=== PATIENT | male | born 1945 | race Hispanic/Latino ===

== ENCOUNTER 2021-06-22 17:30 | Inpatient (IN) | payer MEDICARE ==
[2021-06-22] MEDS ORDERED: SODIUM CHLORIDE 0.9% 500 ML 500 ML IV ONE (17:37)
[2021-06-22] MEDS ORDERED: METOPROLOL TARTRATE 5 MG/5 ML INJ IV ONE (17:39)
[2021-06-22] MEDS ORDERED: PHENYTOIN 1,000 MG in SODIUM CHLORIDE 0.9% 250ML 250 ML IV ONE (17:51)
--- NOTE | 2021-06-22 17:58 | XRay Report ---
CHEST 1 VIEW 06/22/2021 5:39 PM INDICATION / CLINICAL INFORMATION: Dyspnea. COMPARISON: None available. FINDINGS: SUPPORT DEVICES: None. HEART / MEDIASTINUM: No significant abnormality. LUNGS / PLEURA: No significant pulmonary or pleural abnormality. No pneumothorax. ADDITIONAL FINDINGS: No significant additional findings. IMPRESSION: 1. No acute findings. Signer Name: John Sampson MD Signed: 06/22/2021 5:53 PM Workstation Name: [id number]
[2021-06-22 18:14] LABS: Basophils # (Auto) 0.1 K/mm3 (0.0-0.1); Basophils % (Auto) 0.7 % (0.0-1.8); Eosinophils # (Auto) 0.2 K/mm3 (0.0-0.4); Eosinophils % (Auto) 2.4 % (0.0-4.3); Lymphocytes # (Auto) 3.4 K/mm3 (1.2-5.4); Lymphocytes % (Auto) 44.5 % (13.4-35.0); Mean Corpuscular HGB Conc 31 % (32-34); Mean Corpuscular Volume 102 fl (84-94); Monocytes # (Auto) 0.9 K/mm3 (0.0-0.8); Monocytes % (Auto) 11.3 % (0.0-7.3); Platelet Count 181 K/mm3 (140-440); Red Blood Count 4.06 M/mm3 (3.65-5.03); Red Cell Distribution Width 14.9 % (13.2-15.2)
[2021-06-22 18:18] LABS: Hematocrit 41.3 % (35.5-45.6); Hemoglobin 12.7 gm/dl (11.8-15.2)
--- NOTE | 2021-06-22 18:23 | Cat Scan Report ---
CT head/brain wo con INDICATION / CLINICAL INFORMATION: 75 years Male; Seizure. TECHNIQUE: Routine CT head without contrast. All CT scans at this location are performed using CT dos e reduction for ALARA by means of automated exposure control. COMPARISON: None. FINDINGS: BRAIN / INTRACRANIAL CONTENTS: No acute hemorrhage, mass effect, midline shift, hydrocephalus, or acu te, large territorial infarct. Mild to moderate, diffuse cerebral and cerebellar atrophy. Moderate degree of hippocampal atrophy sug gested bilaterally. There are [id number] areas of decreased attenuation in the white matter of the cerebral hemisph eres. These are nonspecific findings and may be related to microangiopathy (hypertension, diabetes, a therosclerosis), given the patient's age. It might be difficult to evaluate for small areas of ischem ia without diffusion imaging by MRI. CRANIOCERVICAL JUNCTION: No significant abnormality. ORBITS: No significant abnormality of visualized orbits. SINUSES / MASTOIDS: Visualized paranasal sinuses and mastoid air cells are essentially clear. ADDITIONAL FINDINGS: Atherosclerotic disease is seen in the anterior and posterior circulation. IMPRESSION: 1. No focal mass, hemorrhage, hydrocephalus, or acute, large territorial infarct. Signer Name: Reji Cartagena MD, III Signed: 06/22/2021 6:19 PM Workstation Name: [id number]ITALTrialPayRUTG[facility]1
[2021-06-22 18:24] LABS: INR 1.26 (0.87-1.13)
[2021-06-22 18:35] LABS: Albumin 4.6 g/dL (3.9-5); Calcium 9.6 mg/dL (8.4-10.2)
[2021-06-22] MEDS ORDERED: dilTIAZem/D5W 100 MG/100 ML BAG IV SCH (19:00)
--- NOTE | 2021-06-22 19:31 | Emergency Department Report ---
ED Seizure HPI - General Chief Complaint: Seizure Stated Complaint: SEIZURE SYNCOPAL EPISODE Time Seen by Provider: 06/22/21 17:37 Source: patient, EMS Mode of arrival: Stretcher Limitations: No Limitations - History of Present Illness Initial Comments: pt was brought in by EMS for syncope fall and possible zeisure pt is 89 years old with recent 3 stents in [facility], doesn;t remember what hapenned today but he fell and his head and had cut on his tongue , no chest pain no sob no history of seizure in the past MD Complaint: seizure -: hour(s) Description of Episode: loss of consciousness, tonic-clonic movement -: second(s) Witnessed:: Yes Trauma: Yes Seizure History: none Place: home Possible Precipitating Event: head injury Associated Symptoms: confusion. denies: denies other symptoms, chest pain, loss of appetite, weakness, tongue injury - Related Data Home Medications Medication Instructions Recorded Confirmed Last Taken Ciprofloxacin TAB 06/22/21 06/22/21 09:00 Eliquis 5 mg PO BID 06/22/21 06/22/21 06/22/21 09:00 Losartan 20 mg PO 06/22/21 06/22/21 12:00 Metoprolol 100 PO BID 06/22/21 06/22/21 09:15 Allergies Allergy/AdvReac Type Severity Reaction Status Date / Time No Known Allergies Allergy Unverified 06/22/21 17:34 ED Review of Systems ROS: Stated complaint: SEIZURE SYNCOPAL EPISODE Other details as noted in HPI Comment: Unobtainable due to pts medical conditions ED Past Medical Hx - Past Medical History Previous Medical History?: Yes Hx Hypertension: Yes Hx CVA: No Hx Heart Attack/AMI: No Hx Diabetes: No Hx Deep Vein Thrombosis: No Hx Pulmonary Embolism: No Hx Liver Disease: No Hx Renal Disease: No Hx of Cancer: No Hx Sickle Cell Disease: No Hx Arthritis: No Hx Seizures: No Hx Kidney Stones: No Hx Psychiatric Treatment: No Hx Asthma: No Hx COPD: No Hx Tuberculosis: No Hx Dementia: No Hx HIV: No - Surgical History Past Surgical History?: Yes Hx Coronary Stent: Yes ([facility] 3 weeks ago) Hx Open Heart Surgery: No Hx Pacemaker: No Hx Internal Defibrillator: No Hx Cholecystectomy: No Hx Appendectomy: No Hx Breast Surgery: No - Social History Smoking Status: Former Smoker Substance Use Type: None - Medications Home Medications: Home Medications Medication Instructions Recorded Confirmed Last Taken Type Ciprofloxacin TAB 06/22/21 06/22/21 09:00 History Eliquis 5 mg PO BID 06/22/21 06/22/21 06/22/21 09:00 History Losartan 20 mg PO 06/22/21 06/22/21 12:00 History Metoprolol 100 PO BID 06/22/21 06/22/21 09:15 History ED Physical Exam - General Limitations: No Limitations General appearance: alert, postictal - Head Head exam: Present: normocephalic, other (head ocntusion) - Eye Eye exam: Present: normal appearance - ENT ENT exam: Present: other (small tongue lac ) - Neck Neck exam: Present: normal inspection - Respiratory Respiratory exam: Present: normal lung sounds bilaterally. Absent: respiratory distress - Cardiovascular Cardiovascular Exam: Present: normal rhythm, tachycardia, irregular rhythm. Absent: systolic murmur, diastolic murmur, rubs, gallop - GI/Abdominal GI/Abdominal exam: Present: soft, normal bowel sounds - Rectal Rectal exam: Present: deferred - Extremities Exam Extremities exam: Present: normal inspection - Back Exam Back exam: Present: normal inspection - Neurological Exam Neurological exam: Present: alert, oriented X3 - Psychiatric Psychiatric exam: Present: normal affect, normal mood - Skin Skin exam: Present: warm, dry, intact, normal color. Absent: rash ED Course Vital Signs 06/22/21 06/22/21 06/22/21 17:32 17:33 17:34 Temperature 98.1 F 97.4 F L Pulse Rate 120 H 107 H 98 H Respiratory 18 15 14 Rate Blood Pressure Blood Pressure 146/92 [Left] Blood Pressure 145/71 [Right] O2 Sat by Pulse 97 98 98 Oximetry 06/22/21 06/22/21 06/22/21 17:46 18:00 18:15 Temperature Pulse Rate 109 H 113 H 116 H Respiratory 22 18 Rate Blood Pressure 133/80 138/75 115/69 Blood Pressure [Left] Blood Pressure [Right] O2 Sat by Pulse 99 99 Oximetry 06/22/21 06/22/21 06/22/21 18:16 18:24 18:27 Temperature Pulse Rate 108 H 111 H Respiratory 20 22 Rate Blood Pressure 138/75 Blood Pressure [Left] Blood Pressure 127/69 [Right] O2 Sat by Pulse 99 100 Oximetry 06/22/21 06/22/21 06/22/21 18:30 18:41 18:46 Temperature Pulse Rate 113 H 105 H 107 H Respiratory 25 H 19 Rate Blood Pressure 127/69 119/79 119/79 Blood Pressure [Left] Blood Pressure [Right] O2 Sat by Pulse 99 Oximetry 06/22/21 06/22/21 06/22/21 19:00 19:08 19:24 Temperature Pulse Rate 101 H 98 H 102 H Respiratory 16 13 11 L Rate Blood Pressure 119/79 Blood Pressure [Left] Blood Pressure 96/63 108/67 [Right] O2 Sat by Pulse 98 100 98 Oximetry ED Medical Decision Making - Lab Data Result diagrams: 06/22/21 17:58 06/22/21 17:58 - EKG Data -: EKG Interpreted by Me EKG shows normal: sinus rhythm Rate: tachycardia - Radiology Data Radiology results: report reviewed, image reviewed - Medical Decision Making work up showed : - Afib rvr , lopressor given then cardiazem drip already anticoagulated - head injury : ct neg - new onset seizure : had 2 more while here , loaded with dilantin , head ct negatve will get neuro consutl Critical care attestation.: If time is entered above; I have spent that time in minutes in the direct care of this critically ill patient, excluding procedure time. ED Disposition Clinical Impression: New onset seizure, Status epilepticus, Atrial fibrillation with RVR, Head contusion, Cut of tongue, Fall, Altered mental status Disposition: ADMITTED INPATIENT Is pt being admited?: Yes Does the pt Need Aspirin: No Condition: Fair Referrals: ALISSA GUZMAN III, [employer] [facility] [Primary Care Provider] - 3-5 Days
--- NOTE | 2021-06-22 20:16 | History and Physical Report ---
History of Present Illness Chief complaint: I do not know what happened History of present illness: 75 YO Male with CAD S/P Stent Placement, HTN, Vascular Dementia, Cerebral Atherosclerosis, Paroxysmal Atrial Fib on therapeutic anticoagulation with Eliquis presents to ED for evaluation. Patient reports "I do not know what happened". EMS was notified and upon arrival the patient was found to be in distress and subsequently transported to [facility] for further care and evaluation of the aforementioned symptoms. The patient was seen and evaluated in the emergency department. All lab and imaging studies reviewed. Patient found to have 2 witnessed seizures while in the emergency department with symptoms consistent with status epilepticus. Patient also found to have atrial fibrillation with RVR as well as clinical symptoms consistent with CHF decompensation. Patient initiated on Cardizem drip and admitted to ICU due to increased risk of worsening symptoms. Cardiology team consulted in ED. Critical care team consulted. Patient denies fever, chills, chest pain, productive cough, skin rash, recent contact, known exposure to COVID-19. No prior admission for review. All medication listed at time of admission has been reconciled. Advanced care planning conducted in ED. Past History Past Medical History: atrial fib, CAD, hypertension Past Surgical History: Other (Cardiac stent placement) Social history: single. denies: smoking, alcohol abuse, prescription drug abuse Family history: hypertension Medications and Allergies Allergies Allergy/AdvReac Type Severity Reaction Status Date / Time No Known Allergies Allergy Unverified 06/22/21 17:34 Home Medications Medication Instructions Recorded Confirmed Last Taken Type Ciprofloxacin TAB 06/22/21 06/22/21 09:00 History Eliquis 5 mg PO BID 06/22/21 06/22/21 06/22/21 09:00 History Losartan 20 mg PO 06/22/21 06/22/21 12:00 History Metoprolol 100 PO BID 06/22/21 06/22/21 09:15 History Active Meds: Active Medications Diltiazem HCl (Cardizem/D5w 100mg/100ml) 100 mg in 100 mls @ 5 mls/hr IV TITR ABENA; Protocol Last Titration: 06/22/21 19:21 Dose: 2.5 mg/hr, 2.5 mls/hr Review of Systems ROS unobtainable: due to mental status Exam - Constitutional Vitals: Temp Pulse Resp BP Pulse Ox 97.4 F L 87 18 103/68 96 06/22/21 17:33 06/22/21 20:05 06/22/21 20:05 06/22/21 20:05 06/22/21 20:05 General appearance: Present: mild distress, obese - EENT Eyes: Present: PERRL ENT: hearing intact, clear oral mucosa - Neck Neck: Present: supple, normal ROM - Respiratory Respiratory effort: normal Respiratory: bilateral: diminished, rales - Cardiovascular Rhythm: other (Tachycardia) Heart Sounds: Present: S1 & S2. Absent: rub, click - Extremities Extremities: pulses symmetrical, No edema Peripheral Pulses: within normal limits - Abdominal General gastrointestinal: Present: soft, non-tender, non-distended, normal bowel sounds Male genitourinary: Present: normal - Integumentary Integumentary: Present: clear, warm, dry - Musculoskeletal Musculoskeletal: gait normal, strength equal bilaterally - Psychiatric Psychiatric: no appropriate mood/affect, no memory intact, cooperative - Neurologic Neurologic: CNII-XII intact, moves all extremities HEART Score - HEART Score Troponin: Troponin T < 0.010 ng/mL (0.00-0.029) 06/22/21 17:58 Results - Labs CBC & Chem 7: 06/22/21 17:58 06/22/21 17:58 Labs: Abnormal lab results 06/22/21 06/22/21 06/22/21 Range/Units 17:58 17:58 17:58 MCV 102 H (84-94) fl MCHC 31 L (32-34) % Lymph % (Auto) 44.5 H (13.4-35.0) % [place] % (Auto) 11.3 H (0.0-7.3) % [place] # (Auto) 0.9 H (0.0-0.8) K/mm3 PT 17.3 H (12.2-14.9) Sec. INR 1.26 H (0.87-1.13) Sodium 132 L (137-145) mmol/L Chloride 94.7 L (98-107) mmol/L Carbon Dioxide 9 L* (22-30) mmol/L Glucose 130 H (75-100) mg/dL Total Creatine Kinase (55-170) units/L NT-Pro-B Natriuret Pep (0-900) pg/mL 06/22/21 Range/Units 17:58 MCV (84-94) fl MCHC (32-34) % Lymph % (Auto) (13.4-35.0) % [place] % (Auto) (0.0-7.3) % [place] # (Auto) (0.0-0.8) K/mm3 PT (12.2-14.9) Sec. INR (0.87-1.13) Sodium (137-145) mmol/L Chloride (98-107) mmol/L Carbon Dioxide (22-30) mmol/L Glucose (75-100) mg/dL Total Creatine Kinase 42 L (55-170) units/L NT-Pro-B Natriuret Pep 2011 H (0-900) pg/mL Assessment and Plan - Patient Problems (1) Atrial fibrillation with RVR Current Visit: Yes Status: Acute Plan to address problem: Patient mated to ICU and initiated on Cardizem drip. Titrate to achieve a heart rate less 100 bpm. Patient treated with therapeutic anticoagulation with Eliquis. Thyroid panel, cardiology team consulted. The high probability of a clinically significant, sudden or life threatening deterioration of the [65] system(s) required my full and direct attention, intervention and personal management. The aggregate critical care time was [cardiac, neuro, pulmonary] minutes. This time is in addition to time spent performing reported procedures but includes the following: [x] Data Review and interpretation [x] Patient assessment and monitoring of vital signs [x] Documentation [x] Medication orders and management (2) CHF (congestive heart failure) Current Visit: Yes Status: Acute Qualifiers: Heart failure type: systolic Heart failure chronicity: acute Qualified Code(s): I50.21 - Acute systolic (congestive) heart failure Plan to address problem: Strict I's/O, monitor urine output every shift, daily weight, afterload reduction, blood pressure control, thyroid panel, magnesium level, echocardiogram ordered and is pending at time of admission. Cardiology team consulted. (3) Obesity hypoventilation syndrome Current Visit: Yes Status: Acute Plan to address problem: Balanced diet, increase physical activity discharge, outpatient pulmonary follow-up for sleep study. (4) Status epilepticus Current Visit: Yes Status: Acute Plan to address problem: Seizure precautions, Keppra therapy, neuro check, supportive care. CT head (5) Vascular dementia Current Visit: Yes Status: Acute Qualifiers: Dementia behavioral disturbance: without behavioral disturbance Qualified Code(s): F01.50 - Vascular dementia without behavioral disturbance Plan to address problem: Verbal prompting, verbal redirection, benzodiazepine therapy as clinically indicated. (6) Cerebral atherosclerosis Current Visit: Yes Status: Acute Plan to address problem: Risk factor reduction therapy, antiplatelet therapy as clinically indicated. (7) DVT prophylaxis Current Visit: Yes Status: Acute Plan to address problem: SCD to bilateral lower extremities while in bed, continue therapeutic anticoagulation (8) Advance care planning Current Visit: Yes Status: Acute Plan to address problem: Disease education conducted, care plan discussed, diagnoses discussed, prognosis discussed, patient is full code. Patient knowledges understanding agreement with care plan, +30 minutes.
[2021-06-22] MEDS ORDERED: ALBUTEROL 2.5 MG/3 ML NEBU IH PRN (20:23)
[2021-06-22] MEDS ORDERED: HYDROmorphone 1 MG/1 ML INJ IV PRN (20:23)
[2021-06-22] MEDS ORDERED: oxyCODONE /ACETAMINOPHEN 5-325MG TAB PO PRN (20:23)
[2021-06-22] MEDS ORDERED: ACETAMINOPHEN 325 MG TAB PO PRN (20:23)
[2021-06-22 21:38] LABS: Free T4 (Free Thyroxine) 1.79 ng/dL (0.76-1.46)
[2021-06-22] MEDS: levETIRAcetam 500 MG TAB PO SCH (22:07)
[2021-06-22] MEDS: APIXABAN 5 MG TAB PO SCH (22:08)
[2021-06-22] MEDS: METOPROLOL TARTRATE 100 MG TAB PO SCH (22:10)
[2021-06-23 01:29] LABS: Bilirubin,Urine NEG (Negative); Blood,Urine NEG (Negative); Color,Urine Yellow (Yellow); Mucus,Urine FEW /HPF; Protein,Urine <15 mg/dL mg/dL (Negative); RBC,Urine < 1.0 /HPF (0.0-6.0); Urobilinogen,Urine < 2.0 mg/dL (<2.0)
[2021-06-23 01:38] LABS: Amphetamine Screen,Urine PRESUMPTIVE NEGATIVE; Benzodiazepines Screen,Urine PRESUMPTIVE NEGATIVE; Cannabinoid Screen,Urine PRESUMPTIVE NEGATIVE; Cocaine Screen,Urine PRESUMPTIVE NEGATIVE; Methadone Screen,Urine PRESUMPTIVE NEGATIVE; Opiate Screen,Urine PRESUMPTIVE NEGATIVE
[2021-06-23 01:47] LABS: Bacteria,Urine 1+ /HPF (Negative)
[2021-06-23] MEDS ORDERED: LORazepam 2 MG/ML VIAL IV ONE (03:11)
[2021-06-23 05:29] LABS: BUN/Creatinine Ratio 11; Blood Urea Nitrogen 12 mg/dL (9-20); Calcium 8.3 mg/dL (8.4-10.2); Hemolysis Index 20
[2021-06-23] MEDS ORDERED: SODIUM CHLORIDE 0.9% 500 ML 500 ML IV ONE (08:32)
[2021-06-23] MEDS: METOPROLOL TARTRATE 100 MG TAB PO SCH ×2 (09:00→18:12)
[2021-06-23] MEDS: levETIRAcetam 500 MG TAB PO SCH ×2 (10:08→21:40)
[2021-06-23] MEDS: CLOPIDOGREL 75 MG TAB PO SCH (10:09)
[2021-06-23] MEDS: TAMSULOSIN 0.4 MG CAP PO SCH (10:09)
[2021-06-23] MEDS: LOSARTAN 25 MG TAB PO SCH (10:09)
[2021-06-23] MEDS: ASPIRIN 81 MG TAB CHEW PO SCH (10:09)
[2021-06-23] MEDS: APIXABAN 5 MG TAB PO SCH ×2 (10:10→21:40)
[2021-06-23] MEDS: LEVOTHYROXINE 112 MCG, LEVOTHYROXINE 25 MCG PO SCH (11:29)
--- NOTE | 2021-06-23 11:44 | Progress Note ---
<MARNIE BRAR - Last Filed: 06/23/21 15:41> Assessment and Plan Assessment and plan: This is a 75-year-old male with known past medical history of HTN, HLD, CAD s/p X3 stents placement, vascular dementia, cerebral atherosclerosis, paroxysmal Atrial Fib on Eliquis at home presented in the ED s/p syncopal episode at home and had X2 witnessed seizures in the ED. Patient was admitted for seizures and atrial fibrillation with RVR. Hospital Course to Date: 06/23: Patient is stable on 2L NC, fully AAO this am. Off cardizem gtt this am, patient remains in Afib in a control rate HR in the 60s. Home medications resumed, 2D echo and Cardiology consult pending. No seizure like activities reported from overnight, continue PO Keppra. EEG and Neurology consult pending. Plan of care discussed with patient. All questions and concerns voiced at this time. Patient also voiced that he currently does not have an advance directive, however, his son-Pipo Delgadillo, is his next of kin and is aware of his wishes. Assessment and Plan #Status Epilepticus #H/o Vascular Dementia - X2 witnessed seizures in the ED - Resolved with IV Ativan - X1 dose of IV dilantin in the ED - Now on PO Keppra - CT head/Brain noted with no focal mass, hemorrhage, hydrocephalus, or acute, large territorial infarct - EEG pending - Neurology cconsulted - Seizure precautions - Continue Neuro check per unit protocol - PRN Ativan for seizures like activities #Atrial Fibrillation with RVR #CHF (Congestive Heart Failure) #H/o CAD s/p Stents Placement #H/o Cerebral Atherosclerosis - Presented in the ED s/p syncopal episode at home - Found in AFIB with RVR in the ED - s/p Cardizem gtt, gtt D/C this am - Patient remains in AFIB in the am, rate control HR in the 60s - Order placed for repeat EKG - ProBNP 2010, patient appears euvolemic, no edema noted - 2D Echo pending - Resume home regimen- ASA,metoprolol,Plavix, statin, and Losartan - Home Eliquis was also resume - Continue blood pressure monitor per protocol - Maintain SBP less than 160 - Cardiology consulted - Strict intake and output - Daily Weight #GI/DVT Prophylaxis - PPI- Pepcid - Home Luciequelias resumed - SCD to bilateral lower extremities while in bed #Advance Care Planning - Disease education conducted. Diagnoses, care plan, and prognosis discussed. Patient knowledges understanding agreement with care plan. All questions and concerns were voiced at this time - Patient also voided that he does not have an Advance Directive, however, his son-Pipo Delgadillo, is his next of kin and is aware of his wishes. The high probability of a clinically significant, sudden or life threatening d eterioration of the [multiple] system(s) required my full and direct attention, intervention and personal management. The aggregate critical care time was [60] minutes. This time is in addition to time spent performing reported procedures but includes the following: [x] Data Review and interpretation [x] Patient assessment and monitoring of vital signs [x] Documentation [x] Medication orders and management Disposition Plan: ICU Total Time Spent with Patient (Minutes): 60 History Interval history: Patient seen and examined at the bedside. Fully AAO, on 2L NC, denied any pain nor any discomfort at this time. Off cardizem gtt this am, Afib with a control rate HR in the 60s noted on the monitor. Hospitalist Physical - Constitutional Vitals: Temp Pulse Resp BP Pulse Ox 97.5 F L 75 14 112/68 100 06/23/21 08:00 06/23/21 10:09 06/23/21 09:01 06/23/21 10:09 06/23/21 09:01 General appearance: Present: no acute distress, obese - EENT Eyes: Present: PERRL, EOM intact ENT: hearing intact, clear oral mucosa - Neck Neck: Present: normal ROM - Respiratory Respiratory effort: normal Respiratory: bilateral: CTA - Cardiovascular Rhythm: regular Heart Sounds: Present: S1 & S2 - Extremities Extremities: no ischemia, pulses intact, pulses symmetrical Peripheral Pulses: within normal limits - Abdominal General gastrointestinal: soft, non-distended, normal bowel sounds - Integumentary Integumentary: Present: clear, warm, dry - Psychiatric Psychiatric: appropriate mood/affect, cooperative - Neurologic Neurologic: CNII-XII intact, moves all extremities - Allied Health Allied health notes reviewed: nursing HEART Score - HEART Score Troponin: Troponin T < 0.010 ng/mL (0.00-0.029) 06/22/21 17:58 Results - Labs CBC & Chem 7: 06/22/21 17:58 06/23/21 04:11 Labs: Laboratory Last Values WBC 7.6 K/mm3 (4.5-11.0) 06/22/21 17:58 RBC 4.06 M/mm3 (3.65-5.03) 06/22/21 17:58 Hgb 12.7 gm/dl (11.8-15.2) 06/22/21 17:58 Hct 41.3 % (35.5-45.6) 06/22/21 17:58 MCV 102 fl (84-94) H 06/22/21 17:58 MCH 31 pg (28-32) 06/22/21 17:58 MCHC 31 % (32-34) L 06/22/21 17:58 RDW 14.9 % (13.2-15.2) 06/22/21 17:58 Plt Count 181 K/mm3 (140-440) 06/22/21 17:58 Lymph % (Auto) 44.5 % (13.4-35.0) H 06/22/21 17:58 [place] % (Auto) 11.3 % (0.0-7.3) H 06/22/21 17:58 Eos % (Auto) 2.4 % (0.0-4.3) 06/22/21 17:58 Baso % (Auto) 0.7 % (0.0-1.8) 06/22/21 17:58 Lymph # (Auto) 3.4 K/mm3 (1.2-5.4) 06/22/21 17:58 [place] # (Auto) 0.9 K/mm3 (0.0-0.8) H 06/22/21 17:58 Eos # (Auto) 0.2 K/mm3 (0.0-0.4) 06/22/21 17:58 Baso # (Auto) 0.1 K/mm3 (0.0-0.1) 06/22/21 17:58 Seg Neutrophils % 41.1 % (40.0-70.0) 06/22/21 17:58 Seg Neutrophils # 3.1 K/mm3 (1.8-7.7) 06/22/21 17:58 PT 17.3 Sec. (12.2-14.9) H 06/22/21 17:58 INR 1.26 (0.87-1.13) H 06/22/21 17:58 Sodium 130 mmol/L (137-145) L 06/23/21 04:11 Potassium 4.2 mmol/L (3.6-5.0) 06/23/21 04:11 Chloride 97.4 mmol/L (98-107) L 06/23/21 04:11 Carbon Dioxide 19 mmol/L (22-30) L D 06/23/21 04:11 Anion Gap 18 mmol/L 06/23/21 04:11 BUN 12 mg/dL (9-20) 06/23/21 04:11 Creatinine 1.1 mg/dL (0.8-1.3) 06/23/21 04:11 Estimated GFR > 60 ml/min 06/23/21 04:11 BUN/Creatinine Ratio 11 % 06/23/21 04:11 Glucose 104 mg/dL (75-100) H 06/23/21 04:11 Calcium 8.3 mg/dL (8.4-10.2) L 06/23/21 04:11 Magnesium 2.00 mg/dL (1.7-2.3) 06/22/21 20:29 Total Bilirubin 0.70 mg/dL (0.1-1.2) 06/22/21 17:58 AST 22 units/L (5-40) 06/22/21 17:58 ALT 25 units/L (7-56) 06/22/21 17:58 Alkaline Phosphatase 65 units/L (35-129) 06/22/21 17:58 Total Creatine Kinase 42 units/L (55-170) L 06/22/21 17:58 Troponin T < 0.010 ng/mL (0.00-0.029) 06/22/21 17:58 NT-Pro-B Natriuret Pep 2011 pg/mL (0-900) H 06/22/21 17:58 Total Protein 8.1 g/dL (6.3-8.2) 06/22/21 17:58 Albumin 4.6 g/dL (3.9-5) 06/22/21 17:58 Albumin/Globulin Ratio 1.3 % 06/22/21 17:58 TSH 7.170 mlU/mL (0.270-4.200) H 06/22/21 20:29 Free T4 1.79 ng/dL (0.76-1.46) H 06/22/21 20:29 Urine Color Yellow (Yellow) 06/23/21 01:08 Urine Turbidity Clear (Clear) 06/23/21 01:08 Urine pH 5.0 (5.0-7.0) 06/23/21 01:08 Ur Specific Hitchcock 1.013 (1.003-1.030) 06/23/21 01:08 Urine Protein <15 mg/dl mg/dL (Negative) 06/23/21 01:08 Urine Glucose (UA) Neg mg/dL (Negative) 06/23/21 01:08 Urine Ketones Neg mg/dL (Negative) 06/23/21 01:08 Urine Blood Neg (Negative) 06/23/21 01:08 Urine Nitrite Neg (Negative) 06/23/21 01:08 Urine Bilirubin Neg (Negative) 06/23/21 01:08 Urine Urobilinogen < 2.0 mg/dL (<2.0) 06/23/21 01:08 Ur Leukocyte Esterase Neg (Negative) 06/23/21 01:08 Urine WBC (Auto) 2.0 /HPF (0.0-6.0) 06/23/21 01:08 Urine RBC (Auto) < 1.0 /HPF (0.0-6.0) 06/23/21 01:08 U Epithel Cells (Auto) 2.0 /HPF (0-13.0) 06/23/21 01:08 Urine Bacteria (Auto) 1+ /HPF (Negative) 06/23/21 01:08 Urine Mucus Few /HPF 06/23/21 01:08 Urine Opiates Screen Presumptive negative 06/23/21 Unknown Urine Methadone Screen Presumptive negative 06/23/21 Unknown Ur Barbiturates Screen Presumptive negative 06/23/21 Unknown Ur Phencyclidine Scrn Presumptive negative 06/23/21 Unknown Ur Amphetamines Screen Presumptive negative 06/23/21 Unknown U Benzodiazepines Scrn Presumptive negative 06/23/21 Unknown Urine Cocaine Screen Presumptive negative 06/23/21 Unknown U Marijuana (THC) Screen Presumptive negative 06/23/21 Unknown Drugs of Abuse Note Disclamer 06/23/21 Unknown Plasma/Serum Alcohol < 0.01 % (0-0.07) 06/22/21 17:58 Mejia/IV: Voiding Method Condom Catheter Active Medications - Current Medications Current Medications: Generic Name Dose Route Start Last Admin Trade Name Freq PRN Reason Stop Dose Admin Acetaminophen 650 mg 06/22/21 20:23 Acetaminophen 325 Mg Tab PO Q6H PRN Pain MILD(1-3)/Fever >100.5/CASTRO Albuterol 2.5 mg 06/22/21 20:23 Albuterol 2.5 Mg/3 Ml Nebu IH Q3HRT PRN Shortness Of Breath Apixaban 5 mg 06/22/21 22:00 06/23/21 10:10 Apixaban 5 Mg Tab PO 5 mg BID ABENA Administration Aspirin 81 mg 06/23/21 10:00 06/23/21 10:09 Aspirin 81 Mg Tab Chew PO 81 mg QDAY ABENA Administration Atorvastatin Calcium 40 mg 06/23/21 22:00 Atorvastatin 40 Mg Tab PO QHS ABENA Clopidogrel Bisulfate 75 mg 06/23/21 10:00 06/23/21 10:09 Clopidogrel 75 Mg Tab PO 75 mg QDAY ABENA Administration Hydromorphone HCl 0.5 mg 06/22/21 20:23 Hydromorphone 1 Mg/1 Ml Inj IV Q8H PRN Pain , Severe (7-10) Diltiazem HCl 100 mg in 100 mls @ 5 mls/hr 06/22/21 19:00 06/23/21 06:20 Cardizem/D5w 100mg/100ml IV 0 mg/hr TITR ABENA 0 mls/hr Titration Protocol 5 MG/HR Levetiracetam 500 mg 06/22/21 22:00 06/23/21 10:08 Levetiracetam 500 Mg Tab PO 500 mg BID ABENA Administration Levothyroxine Sodium 112 mcg/ 137 mcg 06/23/21 11:30 06/23/21 11:29 Levothyroxine Sodium 25 mcg PO 137 mcg DAILY@0600 ABENA Administration Losartan Potassium 25 mg 06/23/21 10:00 06/23/21 10:09 Losartan 25 Mg Tab PO 25 mg DAILY ABENA Administration Metoprolol Tartrate 100 mg 06/22/21 22:00 06/23/21 09:00 Metoprolol Tartrate 100 Mg Tab PO 100 mg BID@0800,1700 ABENA Administration Oxycodone/Acetaminophen 1 tab 06/22/21 20:23 06/22/21 22:26 Oxycodone /Acetaminophen 5-325mg Tab PO 1 tab Q6H PRN Administration Pain, Moderate (4-6) Sodium Chloride 10 ml 06/22/21 22:00 06/23/21 10:09 Sodium Chloride 0.9% 10 Ml Flush Syringe IV 10 ml BID ABENA Administration Sodium Chloride 10 ml 06/22/21 20:23 Sodium Chloride 0.9% 10 Ml Flush Syringe IV PRN PRN LINE FLUSH Tamsulosin HCl 0.4 mg 06/23/21 10:00 06/23/21 10:09 Tamsulosin 0.4 Mg Cap PO 0.4 mg QDAY ABENA Administration <KALLIE SAAVEDRA - Last Filed: 06/24/21 13:33> Assessment and Plan Assessment and plan: I saw and evaluated the patient. Discussed with the nurse practitioner and agree with their findings and plan as documented in this note. Hospitalist Physical - Constitutional Vitals: Temp Pulse Resp BP Pulse Ox 98.7 F 78 25 H 133/85 100 06/24/21 12:00 06/24/21 12:01 06/24/21 13:01 06/24/21 13:01 06/24/21 13:01 HEART Score - HEART Score Troponin: Troponin T < 0.010 ng/mL (0.00-0.029) 06/22/21 17:58 Results - Labs CBC & Chem 7: 06/24/21 04:31 06/24/21 04:31 Labs: Laboratory Last Values WBC 4.4 K/mm3 (4.5-11.0) L 06/24/21 04:31 RBC 3.67 M/mm3 (3.65-5.03) 06/24/21 04:31 Hgb 11.9 gm/dl (11.8-15.2) 06/24/21 04:31 Hct 35.2 % (35.5-45.6) L D 06/24/21 04:31 MCV 96 fl (84-94) H 06/24/21 04:31 MCH 32 pg (28-32) 06/24/21 04:31 MCHC 34 % (32-34) 06/24/21 04:31 RDW 14.3 % (13.2-15.2) 06/24/21 04:31 Plt Count 154 K/mm3 (140-440) 06/24/21 04:31 Lymph % (Auto) 44.5 % (13.4-35.0) H 06/22/21 17:58 [place] % (Auto) 11.3 % (0.0-7.3) H 06/22/21 17:58 Eos % (Auto) 2.4 % (0.0-4.3) 06/22/21 17:58 Baso % (Auto) 0.7 % (0.0-1.8) 06/22/21 17:58 Lymph # (Auto) 3.4 K/mm3 (1.2-5.4) 06/22/21 17:58 [place] # (Auto) 0.9 K/mm3 (0.0-0.8) H 06/22/21 17:58 Eos # (Auto) 0.2 K/mm3 (0.0-0.4) 06/22/21 17:58 Baso # (Auto) 0.1 K/mm3 (0.0-0.1) 06/22/21 17:58 Seg Neutrophils % 41.1 % (40.0-70.0) 06/22/21 17:58 Seg Neutrophils # 3.1 K/mm3 (1.8-7.7) 06/22/21 17:58 PT 17.3 Sec. (12.2-14.9) H 06/22/21 17:58 INR 1.26 (0.87-1.13) H 06/22/21 17:58 D-Dimer 215.71 ng/mlDDU (0-234) 06/23/21 18:46 Sodium 135 mmol/L (137-145) L 06/24/21 04:31 Potassium 4.0 mmol/L (3.6-5.0) 06/24/21 04:31 Chloride 102.6 mmol/L (98-107) 06/24/21 04:31 Carbon Dioxide 21 mmol/L (22-30) L 06/24/21 04:31 Anion Gap 15 mmol/L 06/24/21 04:31 BUN 10 mg/dL (9-20) 06/24/21 04:31 Creatinine 1.0 mg/dL (0.8-1.3) 06/24/21 04:31 Estimated GFR > 60 ml/min 06/24/21 04:31 BUN/Creatinine Ratio 10 % 06/24/21 04:31 Glucose 86 mg/dL (75-100) 06/24/21 04:31 Calcium 9.0 mg/dL (8.4-10.2) 06/24/21 04:31 Phosphorus 4.10 mg/dL (2.5-4.5) 06/24/21 04:31 Magnesium 2.10 mg/dL (1.7-2.3) 06/24/21 04:31 Total Bilirubin 0.70 mg/dL (0.1-1.2) 06/22/21 17:58 AST 22 units/L (5-40) 06/22/21 17:58 ALT 25 units/L (7-56) 06/22/21 17:58 Alkaline Phosphatase 65 units/L (35-129) 06/22/21 17:58 Total Creatine Kinase 42 units/L (55-170) L 06/22/21 17:58 Troponin T < 0.010 ng/mL (0.00-0.029) 06/22/21 17:58 NT-Pro-B Natriuret Pep 2011 pg/mL (0-900) H 06/22/21 17:58 Total Protein 8.1 g/dL (6.3-8.2) 06/22/21 17:58 Albumin 4.6 g/dL (3.9-5) 06/22/21 17:58 Albumin/Globulin Ratio 1.3 % 06/22/21 17:58 TSH 7.170 mlU/mL (0.270-4.200) H 06/22/21 20:29 Free T4 1.79 ng/dL (0.76-1.46) H 06/22/21 20:29 Urine Color Yellow (Yellow) 06/23/21 01:08 Urine Turbidity Clear (Clear) 06/23/21 01:08 Urine pH 5.0 (5.0-7.0) 06/23/21 01:08 Ur Specific [place] 1.013 (1.003-1.030) 06/23/21 01:08 Urine Protein <15 mg/dl mg/dL (Negative) 06/23/21 01:08 Urine Glucose (UA) Neg mg/dL (Negative) 06/23/21 01:08 Urine Ketones Neg mg/dL (Negative) 06/23/21 01:08 Urine Blood Neg (Negative) 06/23/21 01:08 Urine Nitrite Neg (Negative) 06/23/21 01:08 Urine Bilirubin Neg (Negative) 06/23/21 01:08 Urine Urobilinogen < 2.0 mg/dL (<2.0) 06/23/21 01:08 Ur Leukocyte Esterase Neg (Negative) 06/23/21 01:08 Urine WBC (Auto) 2.0 /HPF (0.0-6.0) 06/23/21 01:08 Urine RBC (Auto) < 1.0 /HPF (0.0-6.0) 06/23/21 01:08 U Epithel Cells (Auto) 2.0 /HPF (0-13.0) 06/23/21 01:08 Urine Bacteria (Auto) 1+ /HPF (Negative) 06/23/21 01:08 Urine Mucus Few /HPF 06/23/21 01:08 Urine Opiates Screen Presumptive negative 06/23/21 Unknown Urine Methadone Screen Presumptive negative 06/23/21 Unknown Ur Barbiturates Screen Presumptive negative 06/23/21 Unknown Ur Phencyclidine Scrn Presumptive negative 06/23/21 Unknown Ur Amphetamines Screen Presumptive negative 06/23/21 Unknown U Benzodiazepines Scrn Presumptive negative 06/23/21 Unknown Urine Cocaine Screen Presumptive negative 06/23/21 Unknown U Marijuana (THC) Screen Presumptive negative 06/23/21 Unknown Drugs of Abuse Note Disclamer 06/23/21 Unknown Plasma/Serum Alcohol < 0.01 % (0-0.07) 06/22/21 17:58 Mejia/IV: Voiding Method Condom Catheter Active Medications - Current Medications Current Medications: Generic Name Dose Route Start Last Admin Trade Name Freq PRN Reason Stop Dose Admin Acetaminophen 650 mg 06/22/21 20:23 Acetaminophen 325 Mg Tab PO Q6H PRN Pain MILD(1-3)/Fever >100.5/CASTRO Albuterol 2.5 mg 06/22/21 20:23 Albuterol 2.5 Mg/3 Ml Nebu IH Q3HRT PRN Shortness Of Breath Apixaban 5 mg 06/22/21 22:00 06/24/21 10:05 Apixaban 5 Mg Tab PO 5 mg BID ABENA Administration Aspirin 81 mg 06/23/21 10:00 06/24/21 10:05 Aspirin 81 Mg Tab Chew PO 81 mg QDAY ABENA Administration Atorvastatin Calcium 40 mg 06/23/21 22:00 06/23/21 21:40 Atorvastatin 40 Mg Tab PO 40 mg QHS ABENA Administration Clopidogrel Bisulfate 75 mg 06/23/21 10:00 06/24/21 10:05 Clopidogrel 75 Mg Tab PO 75 mg QDAY ABENA Administration Famotidine 10 mg 06/23/21 22:00 06/24/21 10:05 Famotidine 10 Mg Tab PO 10 mg BID ABENA Administration Hydromorphone HCl 0.5 mg 06/22/21 20:23 Hydromorphone 1 Mg/1 Ml Inj IV Q8H PRN Pain , Severe (7-10) Diltiazem HCl 100 mg in 100 mls @ 5 mls/hr 06/22/21 19:00 06/23/21 06:20 Cardizem/D5w 100mg/100ml IV 0 mg/hr TITR ABENA 0 mls/hr Titration Protocol 5 MG/HR Levetiracetam 1,000 mg 06/23/21 22:00 06/24/21 10:05 Levetiracetam 500 Mg Tab PO 1,000 mg BID ABENA Administration Levothyroxine Sodium 112 mcg/ 137 mcg 06/23/21 11:30 06/24/21 05:25 Levothyroxine Sodium 25 mcg PO 137 mcg DAILY@0600 ABENA Administration Lorazepam 2 mg 06/23/21 12:24 Lorazepam 2 Mg/Ml Vial IV Q2H PRN Seizures Losartan Potassium 25 mg 06/23/21 10:00 06/24/21 10:05 Losartan 25 Mg Tab PO 25 mg DAILY ABENA Administration Metoprolol Tartrate 100 mg 06/22/21 22:00 06/24/21 08:10 Metoprolol Tartrate 100 Mg Tab PO 100 mg BID@0800,1700 ABENA Administration Oxycodone/Acetaminophen 1 tab 06/22/21 20:23 06/22/21 22:26 Oxycodone /Acetaminophen 5-325mg Tab PO 1 tab Q6H PRN Administration Pain, Moderate (4-6) Sodium Chloride 10 ml 06/22/21 22:00 06/24/21 10:05 Sodium Chloride 0.9% 10 Ml Flush Syringe IV 10 ml BID ABENA Administration Sodium Chloride 10 ml 06/22/21 20:23 Sodium Chloride 0.9% 10 Ml Flush Syringe IV PRN PRN LINE FLUSH Tamsulosin HCl 0.4 mg 06/23/21 10:00 06/24/21 10:10 Tamsulosin 0.4 Mg Cap PO 0.4 mg QDAY ABENA Administration
[2021-06-23] MEDS ORDERED: LORazepam 2 MG/ML VIAL IV PRN (12:24)
--- NOTE | 2021-06-23 15:00 | Consultation ---
History of Present Illness Consult date: 06/23/21 Requesting physician: DARRON RODRIGUEZ Reason for consult: other (A-Fib with RVR; Seizures) History of present illness: PULMONARY/CCM CONSULT NOTE (Full dictation # [id number]) Please see dictated notes for full details Past History Past Medical History: atrial fib, CAD, hypertension Past Surgical History: Other (Cardiac stent placement) Social history: single. denies: smoking, alcohol abuse, prescription drug abuse Family history: hypertension Medications and Allergies Allergies Allergy/AdvReac Type Severity Reaction Status Date / Time No Known Allergies Allergy Unverified 06/22/21 17:34 Home Medications Medication Instructions Recorded Confirmed Last Taken Type Ciprofloxacin TAB 06/22/21 06/22/21 09:00 History Eliquis 5 mg PO BID 06/22/21 06/22/21 06/22/21 09:00 History Losartan 20 mg PO 06/22/21 06/22/21 12:00 History Metoprolol 100 PO BID 06/22/21 06/22/21 09:15 History Active Meds: Active Medications Acetaminophen (Acetaminophen 325 Mg Tab) 650 mg PO Q6H PRN PRN Reason: Pain MILD(1-3)/Fever >100.5/CASTRO Albuterol (Albuterol 2.5 Mg/3 Ml Nebu) 2.5 mg IH Q3HRT PRN PRN Reason: Shortness Of Breath Apixaban (Apixaban 5 Mg Tab) 5 mg PO BID [facility] Last Admin: 06/23/21 10:10 Dose: 5 mg Aspirin (Aspirin 81 Mg Tab Chew) 81 mg PO QDAY [facility] Last Admin: 06/23/21 10:09 Dose: 81 mg Atorvastatin Calcium (Atorvastatin 40 Mg Tab) 40 mg PO QHS [facility] Clopidogrel Bisulfate (Clopidogrel 75 Mg Tab) 75 mg PO QDAY [facility] Last Admin: 06/23/21 10:09 Dose: 75 mg Famotidine (Famotidine 10 Mg Tab) 10 mg PO BID ABENA Hydromorphone HCl (Hydromorphone 1 Mg/1 Ml Inj) 0.5 mg IV Q8H PRN PRN Reason: Pain , Severe (7-10) Diltiazem HCl (Cardizem/D5w 100mg/100ml) 100 mg in 100 mls @ 5 mls/hr IV TITR [facility]; Protocol Last Titration: 06/23/21 06:20 Dose: 0 mg/hr, 0 mls/hr Levetiracetam (Levetiracetam 500 Mg Tab) 500 mg PO BID [facility] Last Admin: 06/23/21 10:08 Dose: 500 mg Levothyroxine Sodium 112 mcg/ (Levothyroxine Sodium 25 mcg) 137 mcg PO PASHA LY@0600 [facility] Last Admin: 06/23/21 11:29 Dose: 137 mcg Lorazepam (Lorazepam 2 Mg/Ml Vial) 2 mg IV Q2H PRN PRN Reason: Seizures Losartan Potassium (Losartan 25 Mg Tab) 25 mg PO DAILY [facility] Last Admin: 06/23/21 10:09 Dose: 25 mg Metoprolol Tartrate (Metoprolol Tartrate 100 Mg Tab) 100 mg PO BID@0800,1700 [facility] Last Admin: 06/23/21 09:00 Dose: 100 mg Oxycodone/Acetaminophen (Oxycodone /Acetaminophen 5-325mg Tab) 1 tab PO Q6H PRN PRN Reason: Pain, Moderate (4-6) Last Admin: 06/22/21 22:26 Dose: 1 tab Sodium Chloride (Sodium Chloride 0.9% 10 Ml Flush Syringe) 10 ml IV BID [facility] Last Admin: 06/23/21 10:09 Dose: 10 ml Sodium Chloride (Sodium Chloride 0.9% 10 Ml Flush Syringe) 10 ml IV PRN PRN PRN Reason: LINE FLUSH Tamsulosin HCl (Tamsulosin 0.4 Mg Cap) 0.4 mg PO QDAY [facility] Last Admin: 06/23/21 10:09 Dose: 0.4 mg Physical Examination Vital signs: Vital Signs Temp Pulse Resp BP Pulse Ox 98.1 F 120 H 18 146/92 97 06/22/21 17:32 06/22/21 17:32 06/22/21 17:32 06/22/21 17:32 06/22/21 17:32 Results - Laboratory Findings CBC and BMP: 06/22/21 17:58 06/23/21 04:11 PT/INR, D-dimer PT 17.3 Sec. (12.2-14.9) H 06/22/21 17:58 INR 1.26 (0.87-1.13) H 06/22/21 17:58 Abnormal lab findings: Abnormal Labs 06/22/21 06/22/21 06/22/21 17:58 17:58 17:58 MCV 102 H MCHC 31 L Lymph % (Auto) 44.5 H [place] % (Auto) 11.3 H [place] # (Auto) 0.9 H PT 17.3 H INR 1.26 H Sodium 132 L Chloride 94.7 L Carbon Dioxide 9 L* Glucose 130 H Calcium Total Creatine Kinase NT-Pro-B Natriuret Pep TSH Free T4 06/22/21 06/22/21 06/23/21 17:58 20:29 04:11 MCV MCHC Lymph % (Auto) [place] % (Auto) [place] # (Auto) PT INR Sodium 130 L Chloride 97.4 L Carbon Dioxide 19 L D Glucose 104 H Calcium 8.3 L Total Creatine Kinase 42 L NT-Pro-B Natriuret Pep 2011 H TSH 7.170 H Free T4 1.79 H
--- NOTE | 2021-06-23 15:15 | Electrocardiograph Report ---
[facility] Test Date: 2021-06-22 Test Time: 17:27:32 Pat Name: ISABELLE GUZMAN Department: Room: A262 1 Gender: M [employer] Representative: CHAITANYA : 1945 Requested By: AKLLIE SAAVEDRA Order Number: [id number] Reading MD: Derrick Wiley Measurements Intervals [place] Rate: 93 P: [place]: QRS: -49 QRSD: 92 T: 21 QT: 366 QTc: 455 Interpretive Statements Atrial fibrillation Left anterior fascicular block Anterior infarct, old No previous ECG available for comparison Electronically Signed On 06-23-2021 15:15:13 EDT by Derrick Wiley
--- NOTE | 2021-06-23 15:18 | Electrocardiograph Report ---
[facility] Test Date: 2021-06-22 Test Time: 21:56:32 Pat Name: ISABELLE GUZMAN Department: Room: A262 1 Gender: M Fisher Line: FARTUN : 1945 Requested By: DARRON RODRIGUEZ Order Number: [id number] Reading MD: Derrick Wiley Measurements Intervals [place] Rate: 64 P: [place]: QRS: -44 QRSD: 98 T: 24 QT: 419 QTc: 433 Interpretive Statements Atrial flutter Left axis deviation Anterior infarct, old No previous ECG available for comparison Electronically Signed On 06-23-2021 15:18:05 EDT by Derrick Wiley
--- NOTE | 2021-06-23 15:27 | Electrocardiograph Report ---
[facility] Test Date: 2021-06-23 Test Time: 10:31:22 Pat Name: ISABELLE GUZMAN Department: Room: A262 1 Gender: M Training Specialist: ATA : 1945 Requested By: MARNIE BRAR Order Number: [id number] Reading MD: Derrick Wiley Measurements Intervals [place] Rate: 58 P: [place]: QRS: -37 QRSD: 92 T: -15 QT: 413 QTc: 407 Interpretive Statements Atrial fibrillation Left axis deviation Anterior infarct, old Compared to ECG 06/22/2021 21:56:32 Atrial flutter no longer present Myocardial infarct finding still present Electronically Signed On 06-23-2021 15:27:19 EDT by Derrick Wiley
--- NOTE | 2021-06-23 18:58 | Progress Note ---
Subjective Date of service: 06/23/21 Interval history: CONSULT DICTATED Objective Vital Signs Temp Pulse Pulse Pulse Resp BP BP 06/23/21 18:12 69 112/63 06/23/21 18:01 61 14 112/63 06/23/21 17:01 68 15 94/58 06/23/21 16:01 76 16 117/80 06/23/21 16:00 97.4 F L 76 16 06/23/21 15:01 65 14 106/60 06/23/21 14:01 70 15 106/60 06/23/21 13:01 70 15 111/64 06/23/21 12:10 66 06/23/21 12:01 76 13 137/83 06/23/21 12:00 97.6 F 76 13 06/23/21 11:01 65 13 137/83 06/23/21 10:09 75 112/68 06/23/21 10:00 68 14 100/79 06/23/21 09:01 59 L 14 118/74 06/23/21 09:00 64 118/74 06/23/21 08:01 59 L 19 112/61 06/23/21 08:00 97.5 F L 59 L 20 06/23/21 07:00 59 L 14 99/69 06/23/21 06:01 55 L 20 98/71 06/23/21 05:00 66 16 101/71 06/23/21 04:16 06/23/21 04:04 73 21 124/80 06/23/21 04:00 97.6 F 06/23/21 03:46 77 19 107/61 06/23/21 03:30 77 13 107/61 06/23/21 03:16 54 L 13 107/61 06/23/21 03:00 64 16 116/66 06/23/21 02:46 70 16 116/66 06/23/21 02:30 64 20 116/66 06/23/21 02:16 75 16 116/66 06/23/21 02:00 75 15 117/72 06/23/21 01:46 77 12 117/72 06/23/21 01:30 85 15 117/72 06/23/21 01:16 78 17 117/72 06/23/21 01:00 68 14 117/72 06/23/21 00:46 76 17 124/80 06/23/21 00:30 70 16 124/80 06/23/21 00:16 67 22 124/80 06/23/21 00:00 97.9 F 68 25 H 137/94 06/22/21 23:46 74 24 137/94 06/22/21 23:30 82 19 137/94 06/22/21 23:16 76 27 H 137/94 06/22/21 23:00 83 31 H 137/94 06/22/21 22:46 86 30 H 129/87 06/22/21 22:30 85 30 H 129/87 06/22/21 22:16 70 28 H 129/87 06/22/21 22:10 81 129/87 06/22/21 22:00 97 H 36 H 129/87 06/22/21 21:46 78 21 120/79 06/22/21 21:30 71 16 06/22/21 21:26 78 12 06/22/21 21:24 82 06/22/21 21:00 86 23 108/82 06/22/21 20:05 87 18 103/68 06/22/21 19:24 102 H 11 L 06/22/21 19:08 98 H 13 06/22/21 19:00 101 H 16 119/79 BP BP Pulse Ox 06/23/21 18:12 06/23/21 18:01 100 06/23/21 17:01 93 06/23/21 16:01 86 06/23/21 16:00 100 06/23/21 15:01 100 06/23/21 14:01 100 06/23/21 13:01 100 06/23/21 12:10 118/74 06/23/21 12:01 06/23/21 12:00 100 06/23/21 11:01 100 06/23/21 10:09 06/23/21 10:00 100 06/23/21 09:01 100 06/23/21 09:00 06/23/21 08:01 100 06/23/21 08:00 100 06/23/21 07:00 100 06/23/21 06:01 100 06/23/21 05:00 100 06/23/21 04:16 100 06/23/21 04:04 100 06/23/21 04:00 100 06/23/21 03:46 100 06/23/21 03:30 100 06/23/21 03:16 99 06/23/21 03:00 100 06/23/21 02:46 100 06/23/21 02:30 100 06/23/21 02:16 99 06/23/21 02:00 98 06/23/21 01:46 100 06/23/21 01:30 100 06/23/21 01:16 100 06/23/21 01:00 100 06/23/21 00:46 100 06/23/21 00:30 100 06/23/21 00:16 98 06/23/21 00:00 99 06/22/21 23:46 100 06/22/21 23:30 100 06/22/21 23:16 100 06/22/21 23:00 100 06/22/21 22:46 100 06/22/21 22:30 100 06/22/21 22:16 100 06/22/21 22:10 06/22/21 22:00 99 06/22/21 21:46 100 06/22/21 21:30 100 06/22/21 21:26 100 06/22/21 21:24 06/22/21 21:00 99 06/22/21 20:05 96 06/22/21 19:24 108/67 98 06/22/21 19:08 96/63 100 06/22/21 19:00 98 - Labs and Meds Comprehensive Metabolic Panel 06/23/21 Range/Units 04:11 Sodium 130 L (137-145) mmol/L Potassium 4.2 (3.6-5.0) mmol/L Chloride 97.4 L (98-107) mmol/L Carbon Dioxide 19 L D (22-30) mmol/L BUN 12 (9-20) mg/dL Creatinine 1.1 (0.8-1.3) mg/dL Glucose 104 H (75-100) mg/dL Calcium 8.3 L (8.4-10.2) mg/dL
[2021-06-23] MEDS: FAMOTIDINE 10 MG TAB PO SCH (21:41)
--- NOTE | 2021-06-23 22:08 | Consultation ---
DATE OF CONSULTATION: 06/23/2021 PULMONARY AND CRITICAL CARE CONSULTATION NOTE CONSULTING PHYSICIAN: Dr. Mendoza. REASON FOR CONSULTATION: Seizures, atrial fibrillation with rapid ventricular response. CHIEF COMPLAINT AND HISTORY OF PRESENT ILLNESS: The patient is a now 75-year-old male with past medical history significant amongst other things, both for a diagnosis of coronary artery disease, but also he tells me diagnosis of paroxysmal atrial fibrillation. He was on therapeutic anticoagulation with Eliquis at home. He presented to the Emergency Room confused. According to the initial Emergency Room physicians, he had a syncopal episode/fall/possible seizures. He denied any history of any recollection of what happened. He had fallen, he hit his head. He mentioned he had cut his tongue. He denied any history of a seizure in the past or any other similar episode. While I was in the Emergency Room, he had 2 witnessed seizures that were consistent with status epilepticus and grand mal activity. He was also found in atrial fibrillation with RVR. He was started on a Cardizem drip, started on some IV Keppra and brought into the Intensive Care Unit where I stopped by to see him. When I stopped by to see him, he was feeling a little bit better. Cardizem had been held briefly secondary to an episode of bradycardia earlier on. He had not had any repeat seizures. He denied any fevers, chills, nausea, vomiting, headaches, any numbness, tingling, focal weakness prior to his seizure activity in the preceding few days to months. He quit smoking in 1987, he tells me and had a less than [id number] tobacco smoking history. He does have a diagnosis of hypertension. He has been taking his medications and his initial blood pressures at presentation in the Emergency Room, did not suggest hypertensive urgency or emergency. He denied any new-onset leg pain or swelling, either unilaterally or bilaterally or any suggestion of a deep venous thrombosis. He denied any history of illicit drug use or abuse. This really as much of the history of presentation as I have. PAST MEDICAL HISTORY: Coronary artery disease, hypertension, mild dementia, paroxysmal atrial fibrillation. PAST SURGICAL HISTORY: Coronary artery stenting. MEDICATIONS: He was on at the time I stopped by to see him, according to the medication administration record included the following: Tylenol 650 mg p.o. q. 6 hours p.r.n. mild pain or fevers, albuterol 2.5 mg nebulized q. 3 hours p.r.n. shortness of breath, Eliquis 5 mg p.o. b.i.d., aspirin 81 mg p.o. daily, Lipitor 40 mg p.o. at bedtime, Plavix 75 mg p.o. daily, Cardizem drip at 5 mg per hour, being titrated, Pepcid 10 mg p.o. b.i.d., Dilaudid 0.5 mg IV q. 8 hours p.r.n. severe pain, Keppra 1 gram p.o. b.i.d., Levoxyl 137 mcg p.o. daily, Ativan 2 mg IV q. 2 hours p.r.n. seizures, Cozaar 25 mg p.o. daily, metoprolol 100 mg p.o. b.i.d., Percocet 1 tablet p.o. q. 6 hours p.r.n. moderate pain that is the 5/325 mg dose and Flomax 0.4 mg p.o. daily. ALLERGIES: No known drug allergies. DIET: Well built gentleman. Denies acute weight loss or gain in the preceding few weeks to months. FAMILY AND SOCIAL HISTORY: He lives in the community. No current alcohol, tobacco or illicit drug use or abuse. There is a family history of hypertension. REVIEW OF SYSTEMS: He had a loss of consciousness. He had witnessed seizures. He denied new onset of focal weakness. Denies gross hematochezia or melena. Denies gross hematuria or dysuria. Denies heat or cold intolerance. Denied polydipsia or polyuria. Complete 13-system review of system was obtained. Pertinent positives and/or negatives as in body of history above, otherwise noncontributory. PHYSICAL EXAMINATION: VITAL SIGNS: On presentation was afebrile, temperature 98.1 degrees Fahrenheit, pulse of 120, respiratory rate of 18 and blood pressure 146/92, O2 sats were 99% when I saw him on 2 liters nasal cannula. GENERAL: He is a well-built elderly male, looks his stated age. Normocephalic, atraumatic. I do not see any lesions to his scalp. There is no point tenderness over the scalp or the C-spine posteriorly, resting in bed with a normal respiratory effort at rest. HEAD, EYES, EARS, NOSE AND THROAT: Anicteric. No conjunctival erythema. Oropharynx was moist. NECK: No gross jugular venous distention, no thyromegaly. He has a wound to the right anterior tongue, probably from a bite. Grossly, there were no palpable lymph nodes in the supraclavicular or submandibular lymph node chains. LUNGS: Auscultation of both lung trent unremarkable. Good bilateral air movement. No wheezing. HEART: Sounds 1 and 2 are heard at the time of my evaluation, irregularly irregular without overt rubs or murmurs. ABDOMEN: Soft, full, flat, bowel sounds are positive, nontender, no palpable hepatosplenomegaly. EXTREMITIES: Without overt digital clubbing or cyanosis, no pedal edema. Pedal pulses were 2+ bilaterally. NEUROLOGIC: Pupils were equal, round, about 4 mm, reactive to light. Extraocular muscle movements were intact. He moves all 4 extremities continuously. SKIN: Normal turgor and the areas are examined without overt cellulitis or rash. Please see the wound care nurses' notes for full description of his skin. PSYCHIATRIC: Mood was normal. Affect was appropriate. He had intact judgment and insight. LABORATORY DATA: From my review, white cell count 7600, hemoglobin 12.7, hematocrit 41.3, platelet count 181. INR 1.26. Serum sodium 132, potassium 3.6, chloride 95, bicarbonate was 9, BUN 16, creatinine 1.3, glucose was 130. Liver function test within normal limits. Troponin within normal limits. BNP was elevated at 2011. TSH was high at 7.17, free T4 was high at 1.79. Urinalysis was negative for nitrites and leukocyte esterase. Urine drug screen was presumptive negative. Alcohol level was within normal range. No cultures were sent. RADIOGRAPHIC STUDIES: Chest x-ray reviewed, may be some left lower lobe, small volume atelectasis, otherwise no acute findings that I can see, mildly increased interstitial markings appear chronic. A CT scan of the head was also done, no focal mass, hemorrhage, hydrocephalus or acute large territorial infarct was seen. A 2D echo has been done, ejection fraction normal. Indeterminate diastolic function. He was in AFib. No mention of pulmonary hypertension or elevated right ventricular systolic pressures. ASSESSMENT: 1. Atrial fibrillation with rapid ventricular response. 2. Seizure disorder and new onset. 3. History of coronary artery disease. 4. History of a cardiomyopathy. 5. Vascular dementia. 6. Metabolic acidosis. 7. Elevated serum BMP. 8. Elevated serum TSH. PLAN: I do agree with empiric Keppra. CT brain has been done. Neurology evaluation is in order. Cardizem drip will be weaned off. He is now getting metoprolol and other rate control medications. Cardiology consultation is obviously an order and if I do not see one and I will make sure that one is put in. Oxygen will be weaned to keep sats greater than or equal to about 90%. Aspiration precautions will be maintained. In light of the new onset seizures, syncopal episode. I will rule out venous thromboembolic event in this gentleman. I will first of all get lower extremity Dopplers and a D-dimer plus or minus a V/Q scan, plus or minus a CT of his chest, a CT angiogram, which will also allow me to evaluate the pulmonary parenchyma. He does not smoke now or he does have a remote tobacco smoking history and with a new onset seizure at this age, we need to be sure we are not missing any occult malignancy. He is appropriately anticoagulated for his atrial fibrillation. He is on GI prophylaxis. Flu and pneumonia vaccination will be addressed per protocol. Thank you very much for the consult. We will follow along and make further recommendations as picture progresses/becomes clearer. He is critically ill on life-sustaining interventions including the Cardizem drip at a very high risk of from cardiopulmonary system and neurologic system decompensation. I should mention if the metabolic acidosis is getting better. At this time, I spent about 35-40 minutes of critical care time without overlap and excluding any procedural time that may be necessary. TID: [id number] RECEIPT: [id number] JOHN/THAI
--- NOTE | 2021-06-23 22:22 | Consultation ---
DATE OF CONSULTATION: 06/23/2021 HISTORY OF PRESENT ILLNESS: The patient is a 75-year-old male known to our group who has a history of atrial fibrillation, coronary artery disease and hypertension. He was brought in a state of confusion and was noted to have two witnessed seizures. There is no prior history of seizure disorder. He was found to have atrial fibrillation with a rapid ventricular response. This is improved with therapy. He gives no history of any cardiac symptoms such as chest pain, shortness of breath, dizziness, palpitations, claudication or edema. It is unclear if he is compliant with medications. He had coronary stents placed within the past few weeks. PAST MEDICAL HISTORY: Smoking, none. Alcohol, no heavy use. No drug abuse, family history of hypertension. SURGICAL HISTORY: Other than coronary stent placement, there is no other history of surgeries. ALLERGIES: None. MEDICATIONS: See the nurse's list. REVIEW OF SYSTEMS: No other complaints or medical problems were described other than minor injuries during the seizures that included a tongue injury. PHYSICAL EXAMINATION: GENERAL: Well-developed, well-nourished, in no acute distress. NEUROLOGIC: Was deferred. EYES, NOSE AND THROAT: Unremarkable. NECK: Reveals no JVD or bruits. Neck is supple, no masses. LUNGS: Clear. No labored respirations. HEART: Irregular rhythm. No rubs, murmurs or gallops appreciable. ABDOMEN: Soft, nontender, no masses. EXTREMITIES: No cyanosis, clubbing or edema. Peripheral pulses are intact. IMPRESSION: 1. Probable new onset seizure disorder given the witnessed seizure activity. Consider abnormal cardiac rhythms, hypotension and hyponatremia as possible precipitating factors. 2. Chronic atrial fibrillation: Controlled. Note, the EKG shows evidence of a previous anteroseptal myocardial infarction and rapid ventricular response. There is no suggestion of acute coronary syndrome. 3. Possible underlying decompensated heart failure: BNP is elevated. Negative physical exam. 4. Coronary artery disease: Stable. 5. Mild hyponatremia. 6. Mild elevation of the T4 and TSH: Workup per primary care physician. 7. Hypertension. 8. Prior smoker. No clear history of chronic obstructive pulmonary disease at this point. 9. Hyperlipidemia. 10. Vague history of dementia. PLAN: Observe hemodynamics on current therapy and check the previous workup. Neurology evaluation is in progress. Thank you for this consultation. We will follow the patient. TID: [id number] RECEIPT: [id number] SOCO/VIJAYA
[2021-06-24 05:10] LABS: Hematocrit 35.2 % (35.5-45.6); Hemoglobin 11.9 gm/dl (11.8-15.2); Mean Corpuscular HGB Conc 34 % (32-34); Mean Corpuscular Volume 96 fl (84-94); Platelet Count 154 K/mm3 (140-440); Red Blood Count 3.67 M/mm3 (3.65-5.03); Red Cell Distribution Width 14.3 % (13.2-15.2)
[2021-06-24 05:14] LABS: BUN/Creatinine Ratio 10; Blood Urea Nitrogen 10 mg/dL (9-20); Hemolysis Index 6
[2021-06-24] MEDS: LEVOTHYROXINE 112 MCG, LEVOTHYROXINE 25 MCG PO SCH (05:25)
[2021-06-24] MEDS: METOPROLOL TARTRATE 100 MG TAB PO SCH ×2 (08:10→22:05)
[2021-06-24] MEDS: levETIRAcetam 500 MG TAB PO SCH ×2 (10:05→22:06)
[2021-06-24] MEDS: LOSARTAN 25 MG TAB PO SCH (10:05)
[2021-06-24] MEDS: APIXABAN 5 MG TAB PO SCH ×2 (10:05→22:06)
[2021-06-24] MEDS: FAMOTIDINE 10 MG TAB PO SCH ×2 (10:05→22:06)
[2021-06-24] MEDS: CLOPIDOGREL 75 MG TAB PO SCH (10:05)
[2021-06-24] MEDS: ASPIRIN 81 MG TAB CHEW PO SCH (10:05)
[2021-06-24] MEDS: TAMSULOSIN 0.4 MG CAP PO SCH (10:10)
--- NOTE | 2021-06-24 10:48 | Vascular Lab Report ---
DUPLEX DOPPLER LOWER EXTREMITY VEINS, BILATERAL INDICATION: swelling; syncope; pain. TECHNIQUE: Duplex doppler imaging was performed through the veins of both lower extremities using venous daija giuliano and other maneuvers. COMPARISON: No relevant prior imaging study available. FINDINGS: Right Common femoral vein: Negative. Right Superficial femoral vein: Negative. Right Popliteal vein: Negative. Right Calf veins: There is thrombus superficially in the great saphenous vein over the calf. No DVT. Left Common femoral vein: Negative. Left Superficial femoral vein: Negative. Left Popliteal vein: Negative. Left Calf veins: Negative. Additional findings: None.. IMPRESSION: 1. No sonographic evidence for DVT in either lower extremity. 2. Mild great saphenous vein thrombus on the right at the level of the calf. Signer Name: Mt Gibbs MD Signed: 06/24/2021 10:40 AM Workstation Name: [id number]
--- NOTE | 2021-06-24 13:31 | Consultation ---
History of Present Illness Consult date: 06/24/21 Reason for Consult: Seizure Chief complaint: The consult was evaluation of Seizure. The patient has had 2 seizure in the ER , patient is unaware of the seizure , no headaches , no dizziness and primary workup is normal. Past History Past Medical History: atrial fib, CAD, hypertension Past Surgical History: Other (Cardiac stent placement) Social history: single. denies: smoking, alcohol abuse, prescription drug abuse Family history: hypertension Medications and Allergies Allergies Allergy/AdvReac Type Severity Reaction Status Date / Time No Known Allergies Allergy Unverified 06/22/21 17:34 Home Medications Medication Instructions Recorded Confirmed Last Taken Type Ciprofloxacin TAB 06/22/21 06/22/21 09:00 History Eliquis 5 mg PO BID 06/22/21 06/22/21 06/22/21 09:00 History Losartan 20 mg PO 06/22/21 06/22/21 12:00 History Metoprolol 100 PO BID 06/22/21 06/22/21 09:15 History Active Meds: Active Medications Acetaminophen (Acetaminophen 325 Mg Tab) 650 mg PO Q6H PRN PRN Reason: Pain MILD(1-3)/Fever >100.5/CASTRO Albuterol (Albuterol 2.5 Mg/3 Ml Nebu) 2.5 mg IH Q3HRT PRN PRN Reason: Shortness Of Breath Apixaban (Apixaban 5 Mg Tab) 5 mg PO BID [facility] Last Admin: 06/24/21 10:05 Dose: 5 mg Aspirin (Aspirin 81 Mg Tab Chew) 81 mg PO QDAY [facility] Last Admin: 06/24/21 10:05 Dose: 81 mg Atorvastatin Calcium (Atorvastatin 40 Mg Tab) 40 mg PO QHS [facility] Last Admin: 06/23/21 21:40 Dose: 40 mg Clopidogrel Bisulfate (Clopidogrel 75 Mg Tab) 75 mg PO QDAY [facility] Last Admin: 06/24/21 10:05 Dose: 75 mg Famotidine (Famotidine 10 Mg Tab) 10 mg PO BID [facility] Last Admin: 06/24/21 10:05 Dose: 10 mg Hydromorphone HCl (Hydromorphone 1 Mg/1 Ml Inj) 0.5 mg IV Q8H PRN PRN Reason: Pain , Severe (7-10) Diltiazem HCl (Cardizem/D5w 100mg/100ml) 100 mg in 100 mls @ 5 mls/hr IV TITR [facility]; Protocol Last Titration: 06/23/21 06:20 Dose: 0 mg/hr, 0 mls/hr Levetiracetam (Levetiracetam 500 Mg Tab) 1,000 mg PO BID [facility] Last Admin: 06/24/21 10:05 Dose: 1,000 mg Levothyroxine Sodium 112 mcg/ (Levothyroxine Sodium 25 mcg) 137 mcg PO DAILY@0600 [facility] Last Admin: 06/24/21 05:25 Dose: 137 mcg Lorazepam (Lorazepam 2 Mg/Ml Vial) 2 mg IV Q2H PRN PRN Reason: Seizures Losartan Potassium (Losartan 25 Mg Tab) 25 mg PO DAILY [facility] Last Admin: 06/24/21 10:05 Dose: 25 mg Metoprolol Tartrate (Metoprolol Tartrate 100 Mg Tab) 100 mg PO BID@0800,1700 [facility] Last Admin: 06/24/21 08:10 Dose: 100 mg Oxycodone/Acetaminophen (Oxycodone /Acetaminophen 5-325mg Tab) 1 tab PO Q6H PRN PRN Reason: Pain, Moderate (4-6) Last Admin: 06/22/21 22:26 Dose: 1 tab Sodium Chloride (Sodium Chloride 0.9% 10 Ml Flush Syringe) 10 ml IV BID [facility] Last Admin: 06/24/21 10:05 Dose: 10 ml Sodium Chloride (Sodium Chloride 0.9% 10 Ml Flush Syringe) 10 ml IV PRN PRN PRN Reason: LINE FLUSH Tamsulosin HCl (Tamsulosin 0.4 Mg Cap) 0.4 mg PO QDAY [facility] Last Admin: 06/24/21 10:10 Dose: 0.4 mg Physical Examination - Vital Signs Vital Signs: Vital Signs Temp Pulse Resp BP Pulse Ox 98.1 F 120 H 18 146/92 97 06/22/21 17:32 06/22/21 17:32 06/22/21 17:32 06/22/21 17:32 06/22/21 17:32 - Physical Exam Narrative exam: The patient is alert , moves all 4 extremity . No cranial nerve abnormality . Results - Laboratory Findings CBC and BMP: 06/24/21 04:31 06/24/21 04:31 Abnormal Lab Findings: Abnormal Labs 06/22/21 06/22/21 06/22/21 17:58 17:58 17:58 WBC Hct MCV 102 H MCHC 31 L Lymph % (Auto) 44.5 H [place] % (Auto) 11.3 H [place] # (Auto) 0.9 H PT 17.3 H INR 1.26 H Sodium 132 L Chloride 94.7 L Carbon Dioxide 9 L* Glucose 130 H Calcium Total Creatine Kinase NT-Pro-B Natriuret Pep TSH Free T4 06/22/21 06/22/21 06/23/21 17:58 20:29 04:11 WBC Hct MCV MCHC Lymph % (Auto) [place] % (Auto) [place] # (Auto) PT INR Sodium 130 L Chloride 97.4 L Carbon Dioxide 19 L D Glucose 104 H Calcium 8.3 L Total Creatine Kinase 42 L NT-Pro-B Natriuret Pep 2011 H TSH 7.170 H Free T4 1.79 H 06/24/21 06/24/21 04:31 04:31 WBC 4.4 L Hct 35.2 L D MCV 96 H MCHC Lymph % (Auto) [place] % (Auto) [place] # (Auto) PT INR Sodium 135 L Chloride Carbon Dioxide 21 L Glucose Calcium Total Creatine Kinase NT-Pro-B Natriuret Pep TSH Free T4 Assessment and Plan 1. New onset Seizure - Head CT Normal 2. MRI Brain and EEG in Hospital . 3. Continue Keppra 500 mg 1 tab BID for now . 4. No driving for 6 months . 5. Follow up in am Dr. Carnes
--- NOTE | 2021-06-24 14:29 | Progress Note ---
Assessment and Plan Atrial fibrillation with rapid ventricular response Seizure disorder and new onset History of coronary artery disease History of a cardiomyopathy Vascular dementia Metabolic acidosis Elevated serum BMP Elevated serum TSH - continue to wean supplemental oxygen to keep O2 sats > 90% - prn bronchodilators (EMILIA) with pulm hygiene per RT - continue empiric Keppra as AED - for MRI & EEG - continue to avoid nephrotoxins, renally dose all medications - mobility protocols to prevent pressure ulcers - PT/OT as tolerated - Wound care per RN/WCT - continue accuchecks with glycemic control per SSI for target blood glucose < 180 mg/dL - continued tobacco abstinence strongly counseled at the bedside - home oxygen evaluation at discharge - GI & VTE prophylaxis - Flu & pneumovax per protocol - prn analgesia per pain score - continue other care per attending / other consultants ... re-evaluate in am & prn ... [facility] Subjective Date of service: 06/24/21 Principal diagnosis: A-fib with RVR; Seizures; CAD; CMOP; Metabolic acidosis; Elevated serum TSH Interval history: Patient is seen today for: A-fib with RVR; Seizures; CAD; CMOP; Metabolic acidosis; Elevated serum TSH Seen and examined at bedside; 24hour events reviewed; nursing and respiratory care staff consulted; no adverse overnight events reported to me; resting peacefully in bed; no seizures overnight; denies acute chest pain or palpitations; No N/V/F/C Objective Vital Signs - 12hr 06/24/21 06/24/21 06/24/21 03:01 04:00 05:00 Temperature 97.6 F Pulse Rate 80 70 75 Pulse Rate [ 79 From Monitor] Respiratory 12 14 18 Rate Blood Pressure 116/84 120/65 114/64 O2 Sat by Pulse 99 99 100 Oximetry 06/24/21 06/24/21 06/24/21 06:01 07:00 07:24 Temperature 98.1 F Pulse Rate 81 74 Pulse Rate [ From Monitor] Respiratory 20 18 Rate Blood Pressure 112/71 115/65 O2 Sat by Pulse 100 99 Oximetry 06/24/21 06/24/21 06/24/21 08:00 08:01 08:10 Temperature Pulse Rate 99 H 99 H Pulse Rate [ 99 H From Monitor] Respiratory 13 13 Rate Blood Pressure 122/81 122/81 O2 Sat by Pulse 100 98 Oximetry 06/24/21 06/24/21 06/24/21 09:00 10:00 10:05 Temperature Pulse Rate 77 69 69 Pulse Rate [ From Monitor] Respiratory 12 18 Rate Blood Pressure 108/69 113/66 113/66 O2 Sat by Pulse 99 100 Oximetry 06/24/21 06/24/21 06/24/21 11:01 12:00 12:01 Temperature 98.7 F Pulse Rate 81 78 Pulse Rate [ 91 H From Monitor] Respiratory 16 16 16 Rate Blood Pressure 108/76 108/76 O2 Sat by Pulse 100 100 91 Oximetry 06/24/21 13:01 Temperature Pulse Rate Pulse Rate [ From Monitor] Respiratory 25 H Rate Blood Pressure 133/85 O2 Sat by Pulse 100 Oximetry CBC and BMP: 06/24/21 04:31 06/24/21 04:31 ABG, PT/INR, D-dimer: PT/INR, D-dimer PT 17.3 Sec. (12.2-14.9) H 06/22/21 17:58 INR 1.26 (0.87-1.13) H 06/22/21 17:58 D-Dimer 215.71 ng/mlDDU (0-234) 06/23/21 18:46 Abnormal lab findings: Abnormal Labs 06/22/21 06/22/21 06/22/21 17:58 17:58 17:58 WBC Hct MCV 102 H MCHC 31 L Lymph % (Auto) 44.5 H [place] % (Auto) 11.3 H [place] # (Auto) 0.9 H PT 17.3 H INR 1.26 H Sodium 132 L Chloride 94.7 L Carbon Dioxide 9 L* Glucose 130 H Calcium Total Creatine Kinase NT-Pro-B Natriuret Pep TSH Free T4 06/22/21 06/22/21 06/23/21 17:58 20:29 04:11 WBC Hct MCV MCHC Lymph % (Auto) [place] % (Auto) [place] # (Auto) PT INR Sodium 130 L Chloride 97.4 L Carbon Dioxide 19 L D Glucose 104 H Calcium 8.3 L Total Creatine Kinase 42 L NT-Pro-B Natriuret Pep 2011 H TSH 7.170 H Free T4 1.79 H 06/24/21 06/24/21 04:31 04:31 WBC 4.4 L Hct 35.2 L D MCV 96 H MCHC Lymph % (Auto) [place] % (Auto) [place] # (Auto) PT INR Sodium 135 L Chloride Carbon Dioxide 21 L Glucose Calcium Total Creatine Kinase NT-Pro-B Natriuret Pep TSH Free T4
--- NOTE | 2021-06-24 14:33 | Progress Note ---
Assessment and Plan Patient is comfortable in no acute distress, chronic atrial fibrillation is stable on rate control and oral anticoagulation. Neurological work-up in progress for altered mental status and seizure. Subjective Date of service: 06/24/21 Principal diagnosis: Altered mental status, seizure Interval history: Patient is comfortable, no acute distress, no new cardiac complaints. On library monitor, he has atrial fibrillation with a well-controlled ventricular rate in the 90s. Objective Vital Signs Temp Pulse Pulse Resp BP Pulse Ox 06/24/21 13:01 25 H 133/85 100 06/24/21 12:01 78 16 108/76 91 06/24/21 12:00 98.7 F 91 H 16 100 06/24/21 11:01 81 16 108/76 100 06/24/21 10:05 69 113/66 06/24/21 10:00 69 18 113/66 100 06/24/21 09:00 77 12 108/69 99 06/24/21 08:10 99 H 122/81 06/24/21 08:01 99 H 13 122/81 98 06/24/21 08:00 99 H 13 100 06/24/21 07:24 98.1 F 06/24/21 07:00 74 18 115/65 99 06/24/21 06:01 81 20 112/71 100 06/24/21 05:00 75 18 114/64 100 06/24/21 04:00 97.6 F 70 79 14 120/65 99 06/24/21 03:01 80 12 116/84 99 06/24/21 02:01 74 19 116/84 99 06/24/21 01:01 83 18 116/84 99 06/24/21 00:01 80 23 116/84 100 06/24/21 00:00 98.6 F 69 13 100 06/23/21 23:01 79 22 116/84 100 06/23/21 22:17 78 17 112/71 99 06/23/21 22:01 61 12 112/71 99 06/23/21 22:00 63 06/23/21 21:01 107 H 19 105/64 100 06/23/21 20:00 97.2 F L 66 69 14 89/59 100 06/23/21 19:00 67 20 99/64 100 06/23/21 18:12 69 112/63 04/03/22 18:01 61 14 112/63 100 06/23/21 17:01 68 15 94/58 93 06/23/21 16:01 76 16 117/80 86 06/23/21 16:00 97.4 F L 76 16 100 06/23/21 15:01 65 14 106/60 100 - Physical Examination General: No Apparent Distress HEENT: Positive: PERRL Neck: Positive: neck supple Cardiac: Positive: irregularly irregular Lungs: Positive: Decreased Breath Sounds Neuro: Positive: Grossly Intact Abdomen: Positive: Soft Skin: Positive: Clear Extremities: Absent: edema - Labs and Meds CBC 06/24/21 Range/Units 04:31 WBC 4.4 L (4.5-11.0) K/mm3 RBC 3.67 (3.65-5.03) M/mm3 Hgb 11.9 (11.8-15.2) gm/dl Hct 35.2 L D (35.5-45.6) % Plt Count 154 (140-440) K/mm3 Comprehensive Metabolic Panel 06/24/21 Range/Units 04:31 Sodium 135 L (137-145) mmol/L Potassium 4.0 (3.6-5.0) mmol/L Chloride 102.6 (98-107) mmol/L Carbon Dioxide 21 L (22-30) mmol/L BUN 10 (9-20) mg/dL Creatinine 1.0 (0.8-1.3) mg/dL Glucose 86 (75-100) mg/dL Calcium 9.0 (8.4-10.2) mg/dL
--- NOTE | 2021-06-24 16:56 | Progress Note ---
Assessment and Plan Assessment and plan: This is a 75-year-old male with HTN, HLD, CAD s/p stents x3, hypothyroidism, vascular dementia, cerebral atherosclerosis, paroxysmal atrial fibrillation on home Eliquis admitted for A. fib with RVR and witnessed seizure in the ED Neuro: s/p status epilepticus, h/o vascular dementia and cerebral atherosclerosis -Patient had 2 witnessed seizures in the emergency department which were aborted with Ativan -S/p Dilantin x1 -P.o. Keppra -CT head/Brain noted with no focal mass, hemorrhage, hydrocephalus, or acute, large territorial infarct -EEG pending -Neurology consulted, appreciate recommendations -Seizure precautions -PRN Ativan for seizures like activities Cardiac: Atrial fibrillation with RVR, h/o congestive heart failure, CAD s/p stents x3 -Cardiology consulted, appreciate recommendations -Blood pressure monitoring per protocol -S/p Cardizem drip -Admit proBNP 2010 -Echocardiogram shows LVEF 25 to 30%, mild concentric LVH -Resume home aspirin, metoprolol, Plavix, statin, losartan -CCM consulted, patient recommendations -UDS negative Respiratory: Acute hypoxic respiratory failure -Pulmonary hygiene -SPO2 monitoring -supplemental oxygenation as needed GI: NAD -24 hours -282 mL -PPI -Cardiac diet -BR: Colace :hyponatremia, metabolic acidosis, h/o urinary retention -Renally dose medications -Avoid nephrotoxic medications -Daily weights -Trend BMP -Resume home Flomax ID: NAD -f/u blood culture -Monitor WBC and temperature curve Endo: h/o hypothyroidism -Resume home Synthroid Heme: Leukopenia -Trend CBC -Transfuse hemoglobin less than 7 -Monitor for signs of bleeding -SCDs to BLE while in bed The high probability of a clinically significant, sudden or life threatening deterioration of the [cardio] system(s) required my full and direct attention, intervention and personal management. The aggregate critical care time was [60] minutes. This time is in addition to time spent performing reported procedures but includes the following: [x] Data Review and interpretation [x] Patient assessment and monitoring of vital signs [x] Documentation [x] Medication orders and management Disposition Plan: Transfer to floor Total Time Spent with Patient (Minutes): 60 History Interval history: This is a 75-year-old male with HTN, HLD, CAD s/p stents x3, hypothyroidism, vascular dementia, cerebral atherosclerosis, paroxysmal atrial fibrillation on therapeutic anticoagulation with Eliquis who presents the emergency department via EMS for distress. Upon arrival to the emergency department patient had 2 witnessed seizures and atrial fibrillation with RVR and clinical symptoms consistent with his CHF decompensation. Patient was initiated on Cardizem drip and admitted to the ICU and cardiology was consulted in the emergency department. CCM was also consulted. Hospital Course to Date: 06/23: Patient is stable on 2L NC, fully AAO this am. Off cardizem gtt this am, patient remains in Afib in a control rate HR in the 60s. Home medications resum ed, 2D echo and Cardiology consult pending. No seizure like activities reported from overnight, continue PO Keppra. EEG and Neurology consult pending. Plan of care discussed with patient. All questions and concerns voiced at this time. Patient also voiced that he currently does not have an advance directive, however, his son-Pipo Delgadillo, is his next of kin and is aware of his wishes. 06/24: Patient remains off of Cardizem drip, will be transferred to the floor with telemetry. Hospitalist Physical - Constitutional Vitals: Temp Pulse Resp BP Pulse Ox 97.7 F 82 11 L 116/59 100 06/24/21 15:30 06/24/21 16:00 06/24/21 16:00 06/24/21 16:00 06/24/21 16:00 General appearance: Present: no acute distress, obese - EENT Eyes: Present: PERRL, EOM intact ENT: hearing intact, clear oral mucosa - Neck Neck: Present: supple, normal ROM - Respiratory Respiratory effort: normal Respiratory: bilateral: CTA - Cardiovascular Rhythm: regular Heart Sounds: Present: S1 & S2. Absent: systolic murmur, diastolic murmur - Extremities Extremities: no ischemia, pulses intact, pulses symmetrical, No edema, normal temperature, normal color Peripheral Pulses: within normal limits - Abdominal General gastrointestinal: soft, non-tender, normal bowel sounds - Integumentary Integumentary: Present: warm, dry - Psychiatric Psychiatric: cooperative - Neurologic Neurologic: CNII-XII intact, no focal deficits, moves all extremities - Allied Health Allied health notes reviewed: nursing, RT, social work HEART Score - HEART Score Troponin: Troponin T < 0.010 ng/mL (0.00-0.029) 06/22/21 17:58 Results - Labs CBC & Chem 7: 06/24/21 04:31 06/24/21 04:31 Labs: Laboratory Last Values WBC 4.4 K/mm3 (4.5-11.0) L 06/24/21 04:31 RBC 3.67 M/mm3 (3.65-5.03) 06/24/21 04:31 Hgb 11.9 gm/dl (11.8-15.2) 06/24/21 04:31 Hct 35.2 % (35.5-45.6) L D 06/24/21 04:31 MCV 96 fl (84-94) H 06/24/21 04:31 MCH 32 pg (28-32) 06/24/21 04:31 MCHC 34 % (32-34) 06/24/21 04:31 RDW 14.3 % (13.2-15.2) 06/24/21 04:31 Plt Count 154 K/mm3 (140-440) 06/24/21 04:31 Lymph % (Auto) 44.5 % (13.4-35.0) H 06/22/21 17:58 [place] % (Auto) 11.3 % (0.0-7.3) H 06/22/21 17:58 Eos % (Auto) 2.4 % (0.0-4.3) 06/22/21 17:58 Baso % (Auto) 0.7 % (0.0-1.8) 06/22/21 17:58 Lymph # (Auto) 3.4 K/mm3 (1.2-5.4) 06/22/21 17:58 [place] # (Auto) 0.9 K/mm3 (0.0-0.8) H 06/22/21 17:58 Eos # (Auto) 0.2 K/mm3 (0.0-0.4) 06/22/21 17:58 Baso # (Auto) 0.1 K/mm3 (0.0-0.1) 06/22/21 17:58 Seg Neutrophils % 41.1 % (40.0-70.0) 06/22/21 17:58 Seg Neutrophils # 3.1 K/mm3 (1.8-7.7) 06/22/21 17:58 PT 17.3 Sec. (12.2-14.9) H 06/22/21 17:58 INR 1.26 (0.87-1.13) H 06/22/21 17:58 D-Dimer 215.71 ng/mlDDU (0-234) 06/23/21 18:46 Sodium 135 mmol/L (137-145) L 06/24/21 04:31 Potassium 4.0 mmol/L (3.6-5.0) 06/24/21 04:31 Chloride 102.6 mmol/L (98-107) 06/24/21 04:31 Carbon Dioxide 21 mmol/L (22-30) L 06/24/21 04:31 Anion Gap 15 mmol/L 06/24/21 04:31 BUN 10 mg/dL (9-20) 06/24/21 04:31 Creatinine 1.0 mg/dL (0.8-1.3) 06/24/21 04:31 Estimated GFR > 60 ml/min 06/24/21 04:31 BUN/Creatinine Ratio 10 % 06/24/21 04:31 Glucose 86 mg/dL (75-100) 06/24/21 04:31 Calcium 9.0 mg/dL (8.4-10.2) 06/24/21 04:31 Phosphorus 4.10 mg/dL (2.5-4.5) 06/24/21 04:31 Magnesium 2.10 mg/dL (1.7-2.3) 06/24/21 04:31 Total Bilirubin 0.70 mg/dL (0.1-1.2) 06/22/21 17:58 AST 22 units/L (5-40) 06/22/21 17:58 ALT 25 units/L (7-56) 06/22/21 17:58 Alkaline Phosphatase 65 units/L (35-129) 06/22/21 17:58 Total Creatine Kinase 42 units/L (55-170) L 06/22/21 17:58 Troponin T < 0.010 ng/mL (0.00-0.029) 06/22/21 17:58 NT-Pro-B Natriuret Pep 2011 pg/mL (0-900) H 06/22/21 17:58 Total Protein 8.1 g/dL (6.3-8.2) 06/22/21 17:58 Albumin 4.6 g/dL (3.9-5) 06/22/21 17:58 Albumin/Globulin Ratio 1.3 % 06/22/21 17:58 TSH 7.170 mlU/mL (0.270-4.200) H 06/22/21 20:29 Free T4 1.79 ng/dL (0.76-1.46) H 06/22/21 20:29 Urine Color Yellow (Yellow) 06/23/21 01:08 Urine Turbidity Clear (Clear) 06/23/21 01:08 Urine pH 5.0 (5.0-7.0) 06/23/21 01:08 Ur Specific [place] 1.013 (1.003-1.030) 06/23/21 01:08 Urine Protein <15 mg/dl mg/dL (Negative) 06/23/21 01:08 Urine Glucose (UA) Neg mg/dL (Negative) 06/23/21 01:08 Urine Ketones Neg mg/dL (Negative) 06/23/21 01:08 Urine Blood Neg (Negative) 06/23/21 01:08 Urine Nitrite Neg (Negative) 06/23/21 01:08 Urine Bilirubin Neg (Negative) 06/23/21 01:08 Urine Urobilinogen < 2.0 mg/dL (<2.0) 06/23/21 01:08 Ur Leukocyte Esterase Neg (Negative) 06/23/21 01:08 Urine WBC (Auto) 2.0 /HPF (0.0-6.0) 06/23/21 01:08 Urine RBC (Auto) < 1.0 /HPF (0.0-6.0) 06/23/21 01:08 U Epithel Cells (Auto) 2.0 /HPF (0-13.0) 06/23/21 01:08 Urine Bacteria (Auto) 1+ /HPF (Negative) 06/23/21 01:08 Urine Mucus Few /HPF 06/23/21 01:08 Urine Opiates Screen Presumptive negative 06/23/21 Unknown Urine Methadone Screen Presumptive negative 06/23/21 Unknown Ur Barbiturates Screen Presumptive negative 06/23/21 Unknown Ur Phencyclidine Scrn Presumptive negative 06/23/21 Unknown Ur Amphetamines Screen Presumptive negative 06/23/21 Unknown U Benzodiazepines Scrn Presumptive negative 06/23/21 Unknown Urine Cocaine Screen Presumptive negative 06/23/21 Unknown U Marijuana (THC) Screen Presumptive negative 06/23/21 Unknown Drugs of Abuse Note Disclamer 06/23/21 Unknown Plasma/Serum Alcohol < 0.01 % (0-0.07) 06/22/21 17:58 Mejia/IV: Voiding Method Condom Catheter Active Medications - Current Medications Current Medications: Generic Name Dose Route Start Last Admin Trade Name Freq PRN Reason Stop Dose Admin Acetaminophen 650 mg 06/22/21 20:23 Acetaminophen 325 Mg Tab PO Q6H PRN Pain MILD(1-3)/Fever >100.5/CASTRO Albuterol 2.5 mg 06/22/21 20:23 Albuterol 2.5 Mg/3 Ml Nebu IH Q3HRT PRN Shortness Of Breath Apixaban 5 mg 06/22/21 22:00 06/24/21 10:05 Apixaban 5 Mg Tab PO 5 mg BID ABENA Administration Aspirin 81 mg 06/23/21 10:00 06/24/21 10:05 Aspirin 81 Mg Tab Chew PO 81 mg QDAY ABENA Administration Atorvastatin Calcium 40 mg 06/23/21 22:00 06/23/21 21:40 Atorvastatin 40 Mg Tab PO 40 mg QHS ABENA Administration Clopidogrel Bisulfate 75 mg 06/23/21 10:00 06/24/21 10:05 Clopidogrel 75 Mg Tab PO 75 mg QDAY ABENA Administration Famotidine 10 mg 06/23/21 22:00 06/24/21 10:05 Famotidine 10 Mg Tab PO 10 mg BID ABENA Administration Hydromorphone HCl 0.5 mg 06/22/21 20:23 Hydromorphone 1 Mg/1 Ml Inj IV Q8H PRN Pain , Severe (7-10) Diltiazem HCl 100 mg in 100 mls @ 5 mls/hr 06/22/21 19:00 06/23/21 06:20 Cardizem/D5w 100mg/100ml IV 0 mg/hr TITR ABENA 0 mls/hr Titration Protocol 5 MG/HR Levetiracetam 1,000 mg 06/23/21 22:00 06/24/21 10:05 Levetiracetam 500 Mg Tab PO 1,000 mg BID ABENA Administration Levothyroxine Sodium 112 mcg/ 137 mcg 06/23/21 11:30 06/24/21 05:25 Levothyroxine Sodium 25 mcg PO 137 mcg DAILY@0600 ABENA Administration Lorazepam 2 mg 06/23/21 12:24 Lorazepam 2 Mg/Ml Vial IV Q2H PRN Seizures Losartan Potassium 25 mg 06/23/21 10:00 06/24/21 10:05 Losartan 25 Mg Tab PO 25 mg DAILY ABENA Administration Metoprolol Tartrate 100 mg 06/22/21 22:00 06/24/21 08:10 Metoprolol Tartrate 100 Mg Tab PO 100 mg BID@0800,1700 ABENA Administration Oxycodone/Acetaminophen 1 tab 06/22/21 20:23 06/22/21 22:26 Oxycodone /Acetaminophen 5-325mg Tab PO 1 tab Q6H PRN Administration Pain, Moderate (4-6) Sodium Chloride 10 ml 06/22/21 22:00 06/24/21 10:05 Sodium Chloride 0.9% 10 Ml Flush Syringe IV 10 ml BID ABENA Administration Sodium Chloride 10 ml 06/22/21 20:23 Sodium Chloride 0.9% 10 Ml Flush Syringe IV PRN PRN LINE FLUSH Tamsulosin HCl 0.4 mg 06/23/21 10:00 06/24/21 10:10 Tamsulosin 0.4 Mg Cap PO 0.4 mg QDAY ABENA Administration
[2021-06-25 06:06] LABS: Hematocrit 37.5 % (35.5-45.6); Hemoglobin 12.5 gm/dl (11.8-15.2); Mean Corpuscular HGB Conc 33 % (32-34); Mean Corpuscular Volume 96 fl (84-94); Platelet Count 158 K/mm3 (140-440); Red Cell Distribution Width 14.1 % (13.2-15.2)
[2021-06-25 06:19] LABS: BUN/Creatinine Ratio 9; Blood Urea Nitrogen 10 mg/dL (9-20); Calcium 9.2 mg/dL (8.4-10.2); Hemolysis Index 14
--- NOTE | 2021-06-25 08:44 | Progress Note ---
Assessment and Plan Assessment and plan: History Interval history: This is a 75-year-old male with HTN, HLD, CAD s/p stents x3, hypothyroidism, vascular dementia, cerebral atherosclerosis, paroxysmal atrial fibrillation on therapeutic anticoagulation with Eliquis who presents the emergency department via EMS for distress. Upon arrival to the emergency department patient had 2 witnessed seizures and atrial fibrillation with RVR and clinical symptoms consistent with his CHF decompensation. Patient was initiated on Cardizem drip and admitted to the ICU and cardiology was consulted in the emergency department. CCM was also consulted. Hospital Course to Date: 06/23: Patient is stable on 2L NC, fully AAO this am. Off cardizem gtt this am, patient remains in Afib in a control rate HR in the 60s. Home medications resumed, 2D echo and Cardiology consult pending. No seizure like activities reported from overnight, continue PO Keppra. EEG and Neurology consult pending. Plan of care discussed with patient. All questions and concerns voiced at this time. Patient also voiced that he currently does not have an advance directive, however, his son-Pipo Delgadillo, is his next of kin and is aware of his wishes. 06/24: Patient remains off of Cardizem drip, will be transferred to the floor with telemetry. 06/25: Awaiting completion of MR brain and EEG. If both studies are negative and neurology/cardiology ok, patient can be discharged home as early as this evening. Assessment and plan: This is a 75-year-old male with HTN, HLD, CAD s/p stents x3, hypothyroidism, vascular dementia, cerebral atherosclerosis, paroxysmal atrial fibrillation on home Eliquis admitted for A. fib with RVR and witnessed seizure in the ED Neuro: s/p status epilepticus, h/o vascular dementia and cerebral atherosclerosis -Patient had 2 witnessed seizures in the emergency department which were aborted with Ativan -S/p Dilantin x1 -P.o. 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 Received stents in LAD and left main. -Maintained on Eliquis for chronic atrial fibrillation as an outpatient -Cardiology consulted, appreciate recommendations -Blood pressure monitoring per protocol -S/p Cardihalima chungip -Admit proBNP 2010 -Echocardiogram shows LVEF 25 to 30%, mild concentric LVH -Resume home aspirin, metoprolol, Plavix, statin, losartan -CCM consulted, patient recommendations -UDS negative Respiratory: Acute hypoxic respiratory failure -Pulmonary hygiene -SPO2 monitoring -supplemental oxygenation as needed GI: NAD -24 hours -282 mL -PPI -Cardiac diet -BR: Colace :hyponatremia, metabolic acidosis, h/o urinary retention -Renally dose medications -Avoid nephrotoxic medications -Daily weights -Trend BMP -Resume home Flomax ID: NAD -f/u blood culture -Monitor WBC and temperature curve Endo: h/o hypothyroidism -Resume home Synthroid Heme: Leukopenia -Trend CBC -Transfuse hemoglobin less than 7 -Monitor for signs of bleeding -SCDs to BLE while in bed History Interval history: No acute complaints today. Hospitalist Physical - Physical exam Narrative exam: Physical Exam: VITAL SIGNS: Reviewed. GENERAL: The patient appears normally developed, Vital signs as documented. HEAD: No signs of head trauma. EYES: Pupils are equal. Extraocular motions intact. EARS: Hearing grossly intact. MOUTH: Oropharynx is normal. NECK: No adenopathy, no JVD. CHEST: Chest with clear breath sounds bilaterally. No wheezes, rales, or rhonchi. CARDIAC: Regular rate and rhythm. S1 and S2, without murmurs, gallops, or rubs. VASCULAR: No Edema. Peripheral pulses normal and equal in all extremities. ABDOMEN: Soft, non tender and non distended. No rebound or guarding, and no masses palpated. Bowel Sounds normal. MUSCULOSKELETAL: Good range of motion of all major joints. Extremities without clubbing, cyanosis or edema. NEUROLOGIC EXAM: Alert and oriented x 4. no focal sensory or strength deficits. PSYCHIATRIC: Mood normal. SKIN: detail exam as documented in skin assessment - Constitutional Vitals: Temp Pulse Resp BP Pulse Ox 97.6 F 63 18 119/71 96 06/25/21 08:02 06/25/21 08:02 06/25/21 08:02 06/25/21 08:02 06/25/21 08:02 General appearance: Present: no acute distress, obese HEART Score - HEART Score Troponin: Troponin T < 0.010 ng/mL (0.00-0.029) 06/22/21 17:58 Results - Labs CBC & Chem 7: 06/25/21 05:44 06/25/21 05:44 Labs: Laboratory Last Values WBC 4.8 K/mm3 (4.5-11.0) 06/25/21 05:44 RBC 3.90 M/mm3 (3.65-5.03) 06/25/21 05:44 Hgb 12.5 gm/dl (11.8-15.2) 06/25/21 05:44 Hct 37.5 % (35.5-45.6) 06/25/21 05:44 MCV 96 fl (84-94) H 06/25/21 05:44 MCH 32 pg (28-32) 06/25/21 05:44 MCHC 33 % (32-34) 06/25/21 05:44 RDW 14.1 % (13.2-15.2) 06/25/21 05:44 Plt Count 158 K/mm3 (140-440) 06/25/21 05:44 Lymph % (Auto) 44.5 % (13.4-35.0) H 06/22/21 17:58 [place] % (Auto) 11.3 % (0.0-7.3) H 06/22/21 17:58 Eos % (Auto) 2.4 % (0.0-4.3) 06/22/21 17:58 Baso % (Auto) 0.7 % (0.0-1.8) 06/22/21 17:58 Lymph # (Auto) 3.4 K/mm3 (1.2-5.4) 06/22/21 17:58 [place] # (Auto) 0.9 K/mm3 (0.0-0.8) H 06/22/21 17:58 Eos # (Auto) 0.2 K/mm3 (0.0-0.4) 06/22/21 17:58 Baso # (Auto) 0.1 K/mm3 (0.0-0.1) 06/22/21 17:58 Seg Neutrophils % 41.1 % (40.0-70.0) 06/22/21 17:58 Seg Neutrophils # 3.1 K/mm3 (1.8-7.7) 06/22/21 17:58 PT 17.3 Sec. (12.2-14.9) H 06/22/21 17:58 INR 1.26 (0.87-1.13) H 06/22/21 17:58 D-Dimer 215.71 ng/mlDDU (0-234) 06/23/21 18:46 Sodium 136 mmol/L (137-145) L 06/25/21 05:44 Potassium 4.3 mmol/L (3.6-5.0) 06/25/21 05:44 Chloride 102.9 mmol/L (98-107) 06/25/21 05:44 Carbon Dioxide 21 mmol/L (22-30) L 06/25/21 05:44 Anion Gap 16 mmol/L 06/25/21 05:44 BUN 10 mg/dL (9-20) 06/25/21 05:44 Creatinine 1.1 mg/dL (0.8-1.3) 06/25/21 05:44 Estimated GFR > 60 ml/min 06/25/21 05:44 BUN/Creatinine Ratio 9 % 06/25/21 05:44 Glucose 88 mg/dL (75-100) 06/25/21 05:44 Calcium 9.2 mg/dL (8.4-10.2) 06/25/21 05:44 Phosphorus 4.10 mg/dL (2.5-4.5) 06/24/21 04:31 Magnesium 2.10 mg/dL (1.7-2.3) 06/24/21 04:31 Total Bilirubin 0.70 mg/dL (0.1-1.2) 06/22/21 17:58 AST 22 units/L (5-40) 06/22/21 17:58 ALT 25 units/L (7-56) 06/22/21 17:58 Alkaline Phosphatase 65 units/L (35-129) 06/22/21 17:58 Total Creatine Kinase 42 units/L (55-170) L 06/22/21 17:58 Troponin T < 0.010 ng/mL (0.00-0.029) 06/22/21 17:58 NT-Pro-B Natriuret Pep 2011 pg/mL (0-900) H 06/22/21 17:58 Total Protein 8.1 g/dL (6.3-8.2) 06/22/21 17:58 Albumin 4.6 g/dL (3.9-5) 06/22/21 17:58 Albumin/Globulin Ratio 1.3 % 06/22/21 17:58 TSH 7.170 mlU/mL (0.270-4.200) H 06/22/21 20:29 Free T4 1.79 ng/dL (0.76-1.46) H 06/22/21 20:29 Urine Color Yellow (Yellow) 06/23/21 01:08 Urine Turbidity Clear (Clear) 06/23/21 01:08 Urine pH 5.0 (5.0-7.0) 06/23/21 01:08 Ur Specific [place] 1.013 (1.003-1.030) 06/23/21 01:08 Urine Protein <15 mg/dl mg/dL (Negative) 06/23/21 01:08 Urine Glucose (UA) Neg mg/dL (Negative) 06/23/21 01:08 Urine Ketones Neg mg/dL (Negative) 06/23/21 01:08 Urine Blood Neg (Negative) 06/23/21 01:08 Urine Nitrite Neg (Negative) 06/23/21 01:08 Urine Bilirubin Neg (Negative) 06/23/21 01:08 Urine Urobilinogen < 2.0 mg/dL (<2.0) 06/23/21 01:08 Ur Leukocyte Esterase Neg (Negative) 06/23/21 01:08 Urine WBC (Auto) 2.0 /HPF (0.0-6.0) 06/23/21 01:08 Urine RBC (Auto) < 1.0 /HPF (0.0-6.0) 06/23/21 01:08 U Epithel Cells (Auto) 2.0 /HPF (0-13.0) 06/23/21 01:08 Urine Bacteria (Auto) 1+ /HPF (Negative) 06/23/21 01:08 Urine Mucus Few /HPF 06/23/21 01:08 Urine Opiates Screen Presumptive negative 06/23/21 Unknown Urine Methadone Screen Presumptive negative 06/23/21 Unknown Ur Barbiturates Screen Presumptive negative 06/23/21 Unknown Ur Phencyclidine Scrn Presumptive negative 06/23/21 Unknown Ur Amphetamines Screen Presumptive negative 06/23/21 Unknown U Benzodiazepines Scrn Presumptive negative 06/23/21 Unknown Urine Cocaine Screen Presumptive negative 06/23/21 Unknown U Marijuana (THC) Screen Presumptive negative 06/23/21 Unknown Drugs of Abuse Note Disclamer 06/23/21 Unknown Plasma/Serum Alcohol < 0.01 % (0-0.07) 06/22/21 17:58 Mejia/IV: Voiding Method Condom Catheter Active Medications - Current Medications Current Medications: Generic Name Dose Route Start Last Admin Trade Name Freq PRN Reason Stop Dose Admin Acetaminophen 650 mg 06/22/21 20:23 Acetaminophen 325 Mg Tab PO Q6H PRN Pain MILD(1-3)/Fever >100.5/CASTRO Albuterol 2.5 mg 06/22/21 20:23 Albuterol 2.5 Mg/3 Ml Nebu IH Q3HRT PRN Shortness Of Breath Apixaban 5 mg 06/22/21 22:00 06/24/21 22:06 Apixaban 5 Mg Tab PO 5 mg BID ABENA Administration Aspirin 81 mg 06/23/21 10:00 06/24/21 10:05 Aspirin 81 Mg Tab Chew PO 81 mg QDAY ABENA Administration Atorvastatin Calcium 40 mg 06/23/21 22:00 06/24/21 22:06 Atorvastatin 40 Mg Tab PO 40 mg QHS ABENA Administration Clopidogrel Bisulfate 75 mg 06/23/21 10:00 06/24/21 10:05 Clopidogrel 75 Mg Tab PO 75 mg QDAY ABENA Administration Famotidine 10 mg 06/23/21 22:00 06/24/21 22:06 Famotidine 10 Mg Tab PO 10 mg BID ABENA Administration Hydromorphone HCl 0.5 mg 06/22/21 20:23 Hydromorphone 1 Mg/1 Ml Inj IV Q8H PRN Pain , Severe (7-10) Levetiracetam 1,000 mg 06/23/21 22:00 06/24/21 22:06 Levetiracetam 500 Mg Tab PO 1,000 mg BID ABENA Administration Levothyroxine Sodium 112 mcg 06/25/21 06:00 Levothyroxine 112 Mcg Tab PO DAILY@0600 [facility] Levothyroxine Sodium 25 mcg 06/25/21 06:00 Levothyroxine 25 Mcg Tab PO DAILY@0600 ABENA Lorazepam 2 mg 06/23/21 12:24 Lorazepam 2 Mg/Ml Vial IV Q2H PRN Seizures Losartan Potassium 25 mg 06/23/21 10:00 06/24/21 10:05 Losartan 25 Mg Tab PO 25 mg DAILY ABENA Administration Metoprolol Tartrate 100 mg 06/22/21 22:00 06/24/21 22:05 Metoprolol Tartrate 100 Mg Tab PO Not Given BID@0800,1700 ABENA Oxycodone/Acetaminophen 1 tab 06/22/21 20:23 06/22/21 22:26 Oxycodone /Acetaminophen 5-325mg Tab PO 1 tab Q6H PRN Administration Pain, Moderate (4-6) Sodium Chloride 10 ml 06/22/21 22:00 06/24/21 22:06 Sodium Chloride 0.9% 10 Ml Flush Syringe IV 10 ml BID ABENA Administration Sodium Chloride 10 ml 06/22/21 20:23 Sodium Chloride 0.9% 10 Ml Flush Syringe IV PRN PRN LINE FLUSH Tamsulosin HCl 0.4 mg 06/23/21 10:00 06/24/21 10:10 Tamsulosin 0.4 Mg Cap PO 0.4 mg QDAY ABENA Administration
[2021-06-25] MEDS: levETIRAcetam 500 MG TAB PO SCH ×2 (09:27→22:38)
[2021-06-25] MEDS: ASPIRIN 81 MG TAB CHEW PO SCH (09:28)
[2021-06-25] MEDS: LEVOTHYROXINE 112 MCG TAB PO SCH (09:28)
[2021-06-25] MEDS: CLOPIDOGREL 75 MG TAB PO SCH (09:28)
[2021-06-25] MEDS: LOSARTAN 25 MG TAB PO SCH (09:28)
[2021-06-25] MEDS: METOPROLOL TARTRATE 100 MG TAB PO SCH ×2 (09:28→17:46)
[2021-06-25] MEDS: APIXABAN 5 MG TAB PO SCH ×2 (09:28→22:38)
[2021-06-25] MEDS: FAMOTIDINE 10 MG TAB PO SCH ×2 (09:28→22:38)
[2021-06-25] MEDS: TAMSULOSIN 0.4 MG CAP PO SCH (09:28)
[2021-06-25] MEDS: LEVOTHYROXINE 25 MCG TAB PO SCH (09:29)
--- NOTE | 2021-06-25 10:50 | Progress Note ---
Assessment and Plan - Patient Problems (1) Coronary artery disease Current Visit: Yes Status: Acute Plan to address problem: His cardiac history is notable for chronic atrial fibrillation and coronary artery disease. 3 weeks ago, he underwent coronary stenting of the left main and left anterior descending artery at [facility]. 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 He is maintained on chronic Eliquis therapy for his atrial fibrillation stroke prophylaxis. On this presentation, seizures were observed in the outpatient setting, as well as the emergency room, and he was started on antiseizure medications. There have been no cardiac symptoms or cardiac events reported. (2) Chronic atrial fibrillation Current Visit: Yes Status: Acute Plan to address problem: His cardiac history is notable for chronic atrial fibrillation and coronary artery disease. 3 weeks ago, he underwent coronary stenting of the left main and left anterior descending artery at [facility]. 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 He is maintained on chronic Eliquis therapy for his atrial fibrillation stroke prophylaxis. On this presentation, seizures were observed in the outpatient setting, as well as the emergency room, and he was started on antiseizure medications. There have been no cardiac symptoms or cardiac events reported. Subjective Date of service: 06/25/21 Principal diagnosis: A-fib with RVR; Seizures; CAD; CMOP; Metabolic acidosis; Elevated serum TSH Interval history: Patient looks and feels better, no new cardiac complaints, no cardiac events reported. His cardiac history is notable for chronic atrial fibrillation and coronary artery disease. 3 weeks ago, he underwent coronary stenting of the left main and left anterior descending artery at [facility]. 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 He is maintained on chronic Eliquis therapy for his atrial fibrillation stroke prophylaxis. On this presentation, seizures were observed in the outpatient setting, as well as the emergency room, and he was started on antiseizure medications. There have been no cardiac symptoms or cardiac events reported. Objective Vital Signs Temp Pulse Pulse Resp BP BP Pulse Ox 06/25/21 08:02 97.6 F 63 18 119/71 96 06/25/21 03:58 97.9 F 70 18 107/73 97 06/25/21 00:00 98 F 76 101/75 06/24/21 22:00 97 H 06/24/21 21:18 97 06/24/21 20:45 98.5 F 95 H 18 108/68 97 06/24/21 20:00 100 06/24/21 17:00 103 H 15 121/65 100 06/24/21 16:00 82 82 11 L 116/59 100 06/24/21 15:30 97.7 F 06/24/21 15:00 88 15 111/58 100 06/24/21 14:01 85 14 102/63 99 06/24/21 13:01 25 H 133/85 100 06/24/21 12:01 78 16 108/76 91 06/24/21 12:00 98.7 F 91 H 16 100 06/24/21 11:01 81 16 108/76 100 - Physical Examination General: No Apparent Distress HEENT: Positive: PERRL Neck: Positive: neck supple Cardiac: Positive: irregularly irregular Lungs: Positive: Decreased Breath Sounds Neuro: Positive: Grossly Intact Abdomen: Positive: Soft Skin: Positive: Clear Extremities: Absent: edema - Labs and Meds CBC 06/25/21 Range/Units 05:44 WBC 4.8 (4.5-11.0) K/mm3 RBC 3.90 (3.65-5.03) M/mm3 Hgb 12.5 (11.8-15.2) gm/dl Hct 37.5 (35.5-45.6) % Plt Count 158 (140-440) K/mm3 Comprehensive Metabolic Panel 06/25/21 Range/Units 05:44 Sodium 136 L (137-145) mmol/L Potassium 4.3 (3.6-5.0) mmol/L Chloride 102.9 (98-107) mmol/L Carbon Dioxide 21 L (22-30) mmol/L BUN 10 (9-20) mg/dL Creatinine 1.1 (0.8-1.3) mg/dL Glucose 88 (75-100) mg/dL Calcium 9.2 (8.4-10.2) mg/dL
--- NOTE | 2021-06-25 14:16 | Progress Note ---
Assessment and Plan Atrial fibrillation with rapid ventricular response Seizure disorder and new onset History of coronary artery disease History of a cardiomyopathy Vascular dementia Metabolic acidosis Elevated serum BMP Elevated serum TSH - supplemental oxygen to keep O2 sats > 90% - prn bronchodilators (EMILIA) with pulm hygiene per RT - continue empiric Keppra as AED - for MRI & EEG - continue to avoid nephrotoxins, renally dose all medications - mobility protocols to prevent pressure ulcers - PT/OT as tolerated - Wound care per RN/WCT - continue accuchecks with glycemic control per SSI for target blood glucose < 180 mg/dL - continued tobacco abstinence strongly counseled at the bedside - home oxygen evaluation at discharge - GI & VTE prophylaxis - Flu & pneumovax per protocol - prn analgesia per pain score - continue other care per attending / other consultants ... re-evaluate in am & prn Subjective Date of service: 06/25/21 Principal diagnosis: A-fib with RVR; Seizures; CAD; CMOP; Metabolic acidosis; Elevated serum TSH Interval history: Patient is seen today for: A-fib with RVR; Seizures; CAD; CMOP; Metabolic acidosis; Elevated serum TSH Seen and examined at bedside; 24hour events reviewed; nursing and respiratory care staff consulted; no adverse overnight events reported to me; resting peacefully in bed; no seizures overnight; awaiting MRI / EEG; denies acute chest pains or palpitations Objective Vital Signs - 12hr 06/25/21 06/25/21 06/25/21 03:58 08:02 10:00 Temperature 97.9 F 97.6 F Pulse Rate 70 63 Respiratory 18 18 Rate Blood Pressure 107/73 119/71 O2 Sat by Pulse 97 96 98 Oximetry 06/25/21 06/25/21 10:44 12:27 Temperature 98.4 F Pulse Rate 45 L Respiratory 18 Rate Blood Pressure 115/71 O2 Sat by Pulse 100 92 Oximetry Constitutional: no acute distress Eyes: non-icteric ENT: oropharynx moist Neck: supple, no lymphadenopathy, no JVD Effort: normal Ascultation: Bilateral: clear, diminished breath sounds Percussion: Bilateral: not dull Cardiovascular: regular rate and rhythm Gastrointestinal: normoactive bowel sounds, soft, non-tender, non-distended Integumentary: normal Extremities: no cyanosis, no edema, pink and warm, pulses normal Neurologic: non-focal exam (grossly), pupils equal and round, CN II-XII normal, motor strength normal and Psychiatric: mood appropriate, affect normal CBC and BMP: 06/25/21 05:44 06/25/21 05:44 ABG, PT/INR, D-dimer: PT/INR, D-dimer PT 17.3 Sec. (12.2-14.9) H 06/22/21 17:58 INR 1.26 (0.87-1.13) H 06/22/21 17:58 D-Dimer 215.71 ng/mlDDU (0-234) 06/23/21 18:46 Abnormal lab findings: Abnormal Labs 06/22/21 06/22/21 06/22/21 17:58 17:58 17:58 WBC Hct MCV 102 H MCHC 31 L Lymph % (Auto) 44.5 H [place] % (Auto) 11.3 H [place] # (Auto) 0.9 H PT 17.3 H INR 1.26 H Sodium 132 L Chloride 94.7 L Carbon Dioxide 9 L* Glucose 130 H Calcium Total Creatine Kinase NT-Pro-B Natriuret Pep TSH Free T4 06/22/21 06/22/21 06/23/21 17:58 20:29 04:11 WBC Hct MCV MCHC Lymph % (Auto) [place] % (Auto) [place] # (Auto) PT INR Sodium 130 L Chloride 97.4 L Carbon Dioxide 19 L D Glucose 104 H Calcium 8.3 L Total Creatine Kinase 42 L NT-Pro-B Natriuret Pep 2011 H TSH 7.170 H Free T4 1.79 H 06/24/21 06/24/21 06/25/21 04:31 04:31 05:44 WBC 4.4 L Hct 35.2 L D MCV 96 H 96 H MCHC Lymph % (Auto) [place] % (Auto) [place] # (Auto) PT INR Sodium 135 L Chloride Carbon Dioxide 21 L Glucose Calcium Total Creatine Kinase NT-Pro-B Natriuret Pep TSH Free T4 06/25/21 05:44 WBC Hct MCV MCHC Lymph % (Auto) [place] % (Auto) [place] # (Auto) PT INR Sodium 136 L Chloride Carbon Dioxide 21 L Glucose Calcium Total Creatine Kinase NT-Pro-B Natriuret Pep TSH Free T4 Allied health notes reviewed: nursing
--- NOTE | 2021-06-25 15:46 | Magnetic Resonance Report ---
NONENHANCED MR SCAN OF THE BRAIN: INDICATION / CLINICAL INFORMATION: seizure. TECHNIQUE: Multiplanar, multisequence MR images of the brain obtained. COMPARISON: CT scan of the head from 06/22/2021 FINDINGS: BRAIN / INTRACRANIAL CONTENTS: No acute ischemia, acute hemorrhage, mass effect, midline shift, or hy drocephalus. Chronic changes in the glenn due to chronic small vessel disease; confluent periventricu lar white matter hyperintensity and hemispheric white matter and juxtacortical lesions lesions (Fazek as 1) due to chronic small vessel disease. Mild cortical involution. Given the history of seizures, no space taking lesion in the temporal lobe or frontal lobe; mild dila tation of temporal horn tips suggest mild volume loss in the hippocampus; in these images, no MR find ings to suggest cortical development malformation CRANIOCERVICAL JUNCTION: No significant abnormality. VASCULAR FLOW-VOIDS: No significant abnormality. ORBITS: No significant abnormality of visualized orbits. SINUSES / MASTOIDS: No significant abnormality of visualized sinuses and mastoid air cells. ADDITIONAL FINDINGS: None. IMPRESSION: No acute focal parenchymal lesion in the brain Chronic changes in the glenn, periventricular and deep hemispheric white matter and juxtacortical whit e matter; probably due to chronic small vessel disease Signer Name: Mike Macias MD Signed: 06/25/2021 3:42 PM Workstation Name: [id number]
[2021-06-26] MEDS: LEVOTHYROXINE 25 MCG TAB PO SCH (05:10)
[2021-06-26] MEDS: LEVOTHYROXINE 112 MCG TAB PO SCH (05:11)
[2021-06-26] MEDS: METOPROLOL TARTRATE 100 MG TAB PO SCH (08:59)
[2021-06-26] MEDS: CLOPIDOGREL 75 MG TAB PO SCH (09:09)
[2021-06-26] MEDS: LOSARTAN 25 MG TAB PO SCH (09:09)
[2021-06-26] MEDS: FAMOTIDINE 10 MG TAB PO SCH (09:09)
[2021-06-26] MEDS: TAMSULOSIN 0.4 MG CAP PO SCH (09:10)
[2021-06-26] MEDS: APIXABAN 5 MG TAB PO SCH (09:10)
[2021-06-26] MEDS: levETIRAcetam 500 MG TAB PO SCH (09:10)
[2021-06-26] MEDS: ASPIRIN 81 MG TAB CHEW PO SCH (09:11)
[2021-06-26] MEDS ORDERED: DIGOXIN 0.125 MG TAB PO SCH (10:00)
--- NOTE | 2021-06-26 11:15 | Progress Note ---
Assessment and Plan Atrial fibrillation with rapid ventricular response Seizure disorder and new onset History of coronary artery disease History of a cardiomyopathy Vascular dementia Metabolic acidosis Elevated serum BMP Elevated serum TSH - supplemental oxygen to keep O2 sats > 90% - prn bronchodilators (EMILIA) with pulm hygiene per RT - continue empiric Keppra as AED - for MRI & EEG - continue to avoid nephrotoxins, renally dose all medications - mobility protocols to prevent pressure ulcers - PT/OT as tolerated - Wound care per RN/WCT - continue accuchecks with glycemic control per SSI for target blood glucose < 180 mg/dL - continued tobacco abstinence strongly counseled at the bedside - home oxygen evaluation at discharge - GI & VTE prophylaxis - Flu & pneumovax per protocol - prn analgesia per pain score - continue other care per attending / other consultants ... re-evaluate in am & prn Subjective Date of service: 06/26/21 Principal diagnosis: A-fib with RVR; Seizures; CAD; CMOP; Metabolic acidosis; Elevated serum TSH Interval history: Patient is seen today for: A-fib with RVR; Seizures; CAD; CMOP; Metabolic acidosis; Elevated serum TSH Seen and examined at bedside; 24hour events reviewed; nursing and respiratory care staff consulted; no adverse overnight events reported to me; resting peacefully in bed; Objective Vital Signs - 12hr 06/25/21 06/26/21 06/26/21 23:19 03:48 08:21 Temperature 98.4 F 98.7 F 98.0 F Pulse Rate 57 L 100 H 88 Respiratory 14 18 18 Rate Blood Pressure 126/76 104/69 141/95 O2 Sat by Pulse 97 98 98 Oximetry 06/26/21 06/26/21 06/26/21 08:59 09:09 09:12 Temperature Pulse Rate 87 87 87 Respiratory Rate Blood Pressure 141/88 141/88 141/88 O2 Sat by Pulse Oximetry Constitutional: no acute distress Eyes: non-icteric ENT: oropharynx moist Neck: supple, no lymphadenopathy, no JVD Effort: normal Ascultation: Bilateral: clear, diminished breath sounds Percussion: Bilateral: not dull Cardiovascular: regular rate and rhythm Gastrointestinal: normoactive bowel sounds, soft, non-tender, non-distended Integumentary: normal Extremities: no cyanosis, no edema, pink and warm, pulses normal Neurologic: non-focal exam (grossly), pupils equal and round, CN II-XII normal, motor strength normal and Psychiatric: mood appropriate, affect normal CBC and BMP: 06/25/21 05:44 06/25/21 05:44 ABG, PT/INR, D-dimer: PT/INR, D-dimer PT 17.3 Sec. (12.2-14.9) H 06/22/21 17:58 INR 1.26 (0.87-1.13) H 06/22/21 17:58 D-Dimer 215.71 ng/mlDDU (0-234) 06/23/21 18:46 Abnormal lab findings: Abnormal Labs 06/22/21 06/22/21 06/22/21 17:58 17:58 17:58 WBC Hct MCV 102 H MCHC 31 L Lymph % (Auto) 44.5 H [place] % (Auto) 11.3 H [place] # (Auto) 0.9 H PT 17.3 H INR 1.26 H Sodium 132 L Chloride 94.7 L Carbon Dioxide 9 L* Glucose 130 H Calcium Total Creatine Kinase NT-Pro-B Natriuret Pep TSH Free T4 06/22/21 06/22/21 06/23/21 17:58 20:29 04:11 WBC Hct MCV MCHC Lymph % (Auto) [place] % (Auto) [place] # (Auto) PT INR Sodium 130 L Chloride 97.4 L Carbon Dioxide 19 L D Glucose 104 H Calcium 8.3 L Total Creatine Kinase 42 L NT-Pro-B Natriuret Pep 2011 H TSH 7.170 H Free T4 1.79 H 06/24/21 06/24/21 06/25/21 04:31 04:31 05:44 WBC 4.4 L Hct 35.2 L D MCV 96 H 96 H MCHC Lymph % (Auto) [place] % (Auto) [place] # (Auto) PT INR Sodium 135 L Chloride Carbon Dioxide 21 L Glucose Calcium Total Creatine Kinase NT-Pro-B Natriuret Pep TSH Free T4 06/25/21 05:44 WBC Hct MCV MCHC Lymph % (Auto) [place] % (Auto) [place] # (Auto) PT INR Sodium 136 L Chloride Carbon Dioxide 21 L Glucose Calcium Total Creatine Kinase NT-Pro-B Natriuret Pep TSH Free T4 Allied health notes reviewed: nursing
[2021-06-26 12:19] VITALS: BP 109/67
--- NOTE | 2021-06-26 12:58 | Discharge Summary ---
Providers - Providers Date of Admission: 06/22/21 20:23 Date of discharge: 06/26/21 Attending physician: KALLIE SAAVEDRA MD 06/22/21 20:23 Consult to Physician [CONS] Routine Comment: Consulting Provider: NORM NOE Physician Instructions: Reason For Exam: Atrial fib on cardizem drip 06/22/21 20:35 Consult to Cardiology [CONS] Routine Consulting Provider: DIMAS BATES Reason For Exam: CHF/A. fib 06/23/21 08:24 Consult to Physician [CONS] Routine Comment: Consulting Provider: SHAYNE KIM Physician Instructions: Reason For Exam: Seizure Primary care physician: ALISSA GUZMAN Hospitalization Reason for admission: seizure Condition: Fair Hospital course: Interval history: This is a 75-year-old male with HTN, HLD, CAD s/p stents x3, hypothyroidism, vascular dementia, cerebral atherosclerosis, paroxysmal atrial fibrillation on therapeutic anticoagulation with Eliquis who presents the emergency department via EMS for distress. Upon arrival to the emergency department patient had 2 witnessed seizures and atrial fibrillation with RVR and clinical symptoms consistent with his CHF decompensation. Patient was initiated on Cardizem drip and admitted to the ICU and cardiology was consulted in the emergency department. CCM was also consulted. Hospital Course to Date: 06/23: Patient is stable on 2L NC, fully AAO this am. Off cardizem gtt this am, patient remains in Afib in a control rate HR in the 60s. Home medications resumed, 2D echo and Cardiology consult pending. No seizure like activities reported from overnight, continue PO Keppra. EEG and Neurology consult pending. Plan of care discussed with patient. All questions and concerns voiced at this time. Patient also voiced that he currently does not have an advance directive, however, his son-Pipo Guzman, is his next of kin and is aware of his wishes. 06/24: Patient remains off of Cardizem drip, will be transferred to the floor with telemetry. 5: Awaiting completion of MR brain and EEG. If both studies are negative and neurology/cardiology ok, patient can be discharged home as early as this evening. 6: MR brain negative for acute findings. Due to complications with staffing and inability to have EEG read at our facility, will advise patient to obtain study as an outpatient. He will be discharged home on keppra 1000 mg po bid. patient will be discharged with prescriptions for Eliquis, aspirin, Lipitor, Plavix, digoxin, Keppra, levothyroxine, metoprolol, Flomax. He is advised to follow-up with primary care doctor in 1 to 2 weeks. He is advised to follow-up outpatient with cardiology for his atrial fibrillation. He is advised to follow -up outpatient with neurology. He was also advised that he should not operate a motor vehicle until cleared by his outpatient primary care doctor. Assessment and plan: This is a 75-year-old male with HTN, HLD, CAD s/p stents x3, hypothyroidism, vascular dementia, cerebral atherosclerosis, paroxysmal atrial fibrillation on home Eliquis admitted for A. fib with RVR and witnessed seizure in the ED Neuro: s/p status epilepticus, h/o vascular dementia and cerebral atherosclerosis -Patient had 2 witnessed seizures in the emergency department which were aborted with Ativan -S/p Dilantin x1 -P.o. 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 Received stents in LAD and left main. -Maintained on Eliquis for chronic atrial fibrillation as an outpatient -Cardiology consulted, appreciate recommendations -Blood pressure monitoring per protocol -S/p Cardizem drip -Admit proBNP 2010 -Echocardiogram shows LVEF 25 to 30%, mild concentric LVH -Resume home aspirin, metoprolol, Plavix, statin, losartan -[facility] consulted, patient recommendations -UDS negative Respiratory: Acute hypoxic respiratory failure -Pulmonary hygiene -SPO2 monitoring -supplemental oxygenation as needed GI: NAD -24 hours -282 mL -PPI -Cardiac diet -BR: Colace :hyponatremia, metabolic acidosis, h/o urinary retention -Renally dose medications -Avoid nephrotoxic medications -Daily weights -Trend BMP -Resume home Flomax ID: NAD -f/u blood culture -Monitor WBC and temperature curve Endo: h/o hypothyroidism -Resume home Synthroid Heme: Leukopenia -Trend CBC -Transfuse hemoglobin less than 7 -Monitor for signs of bleeding -SCDs to BLE while in bed Disposition: 01 HOME / SELF CARE / HOMELESS Final Discharge Diagnosis (Prints w/discharge instructions): seizure, atrial fibrilllation with rapid ventricular response Time spent for discharge: 35 Core Measure Documentation - Palliative Care Palliative Care/ Comfort Measures: Not Applicable - Core Measures Any of the following diagnoses?: none Exam - Physical Exam Narrative exam: Physical Exam: VITAL SIGNS: Reviewed. GENERAL: The patient appears normally developed, Vital signs as documented. HEAD: No signs of head trauma. EYES: Pupils are equal. Extraocular motions intact. EARS: Hearing grossly intact. MOUTH: Oropharynx is normal. NECK: No adenopathy, no JVD. CHEST: Chest with clear breath sounds bilaterally. No wheezes, rales, or rhonchi. CARDIAC: Regular rate and rhythm. S1 and S2, without murmurs, gallops, or rubs. VASCULAR: No Edema. Peripheral pulses normal and equal in all extremities. ABDOMEN: Soft, non tender and non distended. No rebound or guarding, and no masses palpated. Bowel Sounds normal. MUSCULOSKELETAL: Good range of motion of all major joints. Extremities without clubbing, cyanosis or edema. NEUROLOGIC EXAM: Alert and oriented x 4. no focal sensory or strength deficits. PSYCHIATRIC: Mood normal. SKIN: detail exam as documented in skin assessment - Constitutional Vitals: Temp Pulse Resp BP Pulse Ox 97.5 F L 52 L 18 109/67 97 06/26/21 11:33 06/26/21 11:33 06/26/21 11:33 06/26/21 11:33 06/26/21 11:33 Plan Plan of Treatment: patient will be discharged with prescriptions for Eliquis, aspirin, Lipitor, Plavix, digoxin, Keppra, levothyroxine, metoprolol, Flomax. He is advised to follow-up with primary care doctor in 1 to 2 weeks. He is advised to follow-up outpatient with cardiology for his atrial fibrillation. He is advised to follow-up outpatient with neurology. He was also advised that he should not operate a motor vehicle until cleared by his outpatient primary care doctor. Follow up with: ALISSA GUZMAN III, [facility] [Primary Care Provider] - 3-5 Days ANA FATIMA MD [Staff Physician] - 7 Days SHAYNE KIM MD [Staff Physician] - 7 Days Prescriptions: AtorvaSTATin [Lipitor] 40 mg PO QHS 30 Days #30 tablet Aspirin [Aspirin BABY CHEW TAB] 81 mg PO QDAY 30 Days #30 tab.chew Losartan [Cozaar] 25 mg PO QDAY 30 Days #30 tab Apixaban [Eliquis] 5 mg PO BID 30 Days #60 tablet levETIRAcetam [Keppra TAB] 1,000 mg PO BID 30 Days #60 tablet Digoxin [Lanoxin] 0.125 mg PO DAILY 30 Days #30 tab Levothyroxine Sodium [Levothyroxine] 137 mcg PO QAM 30 Days #30 cap Metoprolol [Lopressor TAB] 100 mg PO BID@0800,1700 30 Days #60 tablet Clopidogrel [Plavix] 75 mg PO QDAY 30 Days #30 tablet
--- NOTE | 2021-06-26 13:56 | Progress Note ---
Assessment and Plan - Patient Problems (1) Coronary artery disease Current Visit: Yes Status: Acute Plan to address problem: Patient was admitted with acute seizures, observed in the outpatient as well as in the emergency room. His cardiac history is notable for chronic atrial fibrillation and coronary artery disease. 3 weeks ago, he underwent coronary stenting of the left main and left anterior descending artery at [facility]. 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 He is maintained on chronic Eliquis therapy for his atrial fibrillation stroke prophylaxis. There have been no cardiac symptoms or cardiac events reported, and he is tolerating uninterrupted dual oral antiplatelet therapy with aspirin and Plavix in addition to his oral anticoagulation with Eliquis. (2) Chronic atrial fibrillation Current Visit: Yes Status: Acute Subjective Date of service: 06/26/21 Principal diagnosis: Seizures Interval history: Patient is comfortable, no cardiac complaints, no new cardiac events reported. Objective Vital Signs Temp Pulse Resp BP Pulse Ox 06/26/21 11:33 97.5 F L 52 L 18 109/67 97 06/26/21 09:12 87 141/88 06/26/21 09:09 87 141/88 06/26/21 08:59 87 141/88 06/26/21 08:55 83 18 141/88 99 06/26/21 08:21 98.0 F 88 18 141/95 98 06/26/21 03:48 98.7 F 100 H 18 104/69 98 06/25/21 23:19 98.4 F 57 L 14 126/76 97 06/25/21 22:00 100 H 96 06/25/21 19:24 97.8 F 66 16 121/75 98 06/25/21 17:46 85 107/72 06/25/21 15:59 98.4 F 54 L 18 107/72 98 - Physical Examination General: No Apparent Distress HEENT: Positive: PERRL Neck: Positive: neck supple Cardiac: Positive: Reg Rate and Rhythm Lungs: Positive: Decreased Breath Sounds Neuro: Positive: Grossly Intact Abdomen: Positive: Soft Skin: Positive: Clear Extremities: Absent: edema - Allied health notes Allied health notes reviewed: nursing
== END 2021-06-26 16:40 | disposition home or self-care (01) | DRG 100 ==
LOC: ED 17:30 → CC1 20:23 → 4A 06-24 17:31
PROVIDERS: ADMIT Internal Medicine; ATTEND Internal Medicine
DX: G40.901 Epilepsy, unspecified, not intractable, with status epilepticus (principal); J96.01 Acute respiratory failure with hypoxia; E66.2 Morbid (severe) obesity with alveolar hypoventilation; E87.1 Hypo-osmolality and hyponatremia; E87.2 Acidosis; I42.9 Cardiomyopathy, unspecified; I48.20 Chronic atrial fibrillation, unspecified; I50.9 Heart failure, unspecified; I11.0 Hypertensive heart disease with heart failure; F01.50 Vascular dementia, unspecified severity, without behavioral disturbance, psychotic disturbance, mood disturbance, and anxiety; D72.819 Decreased white blood cell count, unspecified; Z68.21 Body mass index [BMI] 21.0-21.9, adult; W18.39XA Other fall on same level, initial encounter; Y93.89 Activity, other specified; Y92.89 Other specified places as the place of occurrence of the external cause; Y99.8 Other external cause status; S00.93XA Contusion of unspecified part of head, initial encounter; I25.10 Atherosclerotic heart disease of native coronary artery without angina pectoris; I67.2 Cerebral atherosclerosis; Z79.899 Other long term (current) drug therapy; Z87.891 Personal history of nicotine dependence; Z82.49 Family history of ischemic heart disease and other diseases of the circulatory system
CPT/HCPCS: 36415; 70450; 70551; 71045; 80048; 80053; 80307; 80320; 81001; 82550; 83735; 83880; 84100; 84439; 84443; 84484; 85025; 85027; 85379; 85610; 93005; 93306; 93970; 94760; 95819; G0378; J3490; J9280; C8929; G0480; J1165; J2060; J7040; J7050

== ENCOUNTER 2021-06-28 12:09 | Inpatient (IN) | payer MEDICARE, OTHER ==
[2021-06-28] MEDS ORDERED: LORazepam 2 MG/ML VIAL IV ONE (12:30)
--- NOTE | 2021-06-28 12:32 | Emergency Department Report ---
HPI - General Chief Complaint: Seizure Time Seen by Provider: 06/28/21 12:23 - HPI HPI: This patient comes in complaining of severe chest pain that he says has been going on for a week. He seems very agitated and it is difficult to get an accurate history from him because of his agitation. He describes the pain as achy nonradiating and associated with shortness of breath but no diaphoresis nor nausea. Nothing makes it better nor worse and he has taken no medicines for this. ED Past Medical Hx - Past Medical History Hx Hypertension: Yes Hx CVA: No Hx Heart Attack/AMI: No Hx Diabetes: No Hx Deep Vein Thrombosis: No Hx Pulmonary Embolism: No Hx Liver Disease: No Hx Renal Disease: No Hx Sickle Cell Disease: No Hx Arthritis: No Hx Seizures: No Hx Kidney Stones: No Hx Psychiatric Treatment: No Hx Asthma: No Hx COPD: No Hx Tuberculosis: No Hx Dementia: No Hx HIV: No - Surgical History Hx Coronary Stent: Yes Hx Open Heart Surgery: No Hx Pacemaker: No Hx Internal Defibrillator: No Hx Cholecystectomy: No Hx Appendectomy: No Hx Breast Surgery: No - Social History Smoking Status: Former Smoker - Medications Home Medications: Home Medications Medication Instructions Recorded Confirmed Last Taken Type Apixaban [Eliquis] 5 mg PO BID 06/25/21 06/25/21 Unknown History Clopidogrel [Plavix] 75 mg PO QDAY 06/25/21 06/25/21 Unknown History Cyanocobalamin (Vitamin B-12) 1,000 mcg PO QDAY 06/25/21 06/25/21 Unknown History [B-12] Folic Acid [Folvite] 1 mg PO QDAY 06/25/21 06/25/21 Unknown History Spironolactone [Aldactone] 25 mg PO QDAY 06/25/21 06/25/21 Unknown History Tamsulosin [Flomax] 0.4 mg PO QDAY 06/25/21 06/25/21 Unknown History Thiamine [Vitamin B-1] 100 mg PO QDAY 06/25/21 06/25/21 Unknown History Apixaban [Eliquis] 5 mg PO BID 30 Days #60 tablet 06/26/21 Unknown Rx Aspirin [Aspirin BABY CHEW TAB] 81 mg PO QDAY 30 Days #30 tab.chew 06/26/21 Unknown Rx AtorvaSTATin [Lipitor] 40 mg PO QHS 30 Days #30 tablet 06/26/21 Unknown Rx Clopidogrel [Plavix] 75 mg PO QDAY 30 Days #30 tablet 06/26/21 Unknown Rx Digoxin [Lanoxin] 0.125 mg PO DAILY 30 Days #30 tab 06/26/21 Unknown Rx Levothyroxine Sodium 137 mcg PO QAM 30 Days #30 cap 06/26/21 Unknown Rx [Levothyroxine] Losartan [Cozaar] 25 mg PO QDAY 30 Days #30 tab 06/26/21 Unknown Rx Metoprolol [Lopressor TAB] 100 mg PO BID@0800,1700 30 Days 06/26/21 Unknown Rx #60 tablet Tamsulosin [Flomax] 0.4 mg PO QDAY capsule 06/26/21 Unknown Rx levETIRAcetam [Keppra TAB] 1,000 mg PO BID 30 Days #60 tablet 06/26/21 Unknown Rx ED Review of Systems ROS: Stated complaint: MEDICAL Other details as noted in HPI Comment: All other systems reviewed and negative Physical Exam - Physical Exam Vital Signs: Vital Signs 06/28/21 12:13 Temperature 98.2 F Pulse Rate 109 H Respiratory 22 Rate Blood Pressure 148/91 [Right] O2 Sat by Pulse 99 Oximetry Physical Exam: Physical Exam Constitutional: General: The patient is agitated moving all his extremities and very anxious. Appearance: No diaphoresis. HENT: Head: Normocephalic. Eyes: Pupils: Pupils are equal, round, and reactive to light. Neck: Musculoskeletal: Normal range of motion. Cardiovascular: Rate and Rhythm: Normal rate and regular rhythm. Pulses: Intact distal pulses. Heart sounds: Normal heart sounds. No murmur. Pulmonary: Effort: No respiratory distress. Breath sounds: No wheezing or rales. Chest: Chest wall: The patient has some resolving ecchymosis in the superior anterior chest above the manubrium with no tenderness. Abdominal: General: There is no distension. Palpations: There is no mass. Tenderness: There is no abdominal tenderness. There is no guarding or rebound. Musculoskeletal: Normal range of motion. Skin: General: Skin is warm and dry. Neurological: Mental Status: Alert and oriented to person, place, and time. Psychiatric: Mood and Affect: Mood and affect normal. Cognition and Memory: Memory normal. Judgment: Judgment normal. ED Course Vital Signs 06/28/21 12:13 Temperature 98.2 F Pulse Rate 109 H Respiratory 22 Rate Blood Pressure 148/91 [Right] O2 Sat by Pulse 99 Oximetry - Reevaluation(s) Reevaluation #1: 06/28/21 12:37 EKG done and interpreted at 1227 shows a rate of 108, tachycardia. The rhythm is atrial fibrillation. There are no ST or T wave normalities. Reevaluation #2: 06/28/21 14:46 The patient CeraLyte better after the medicines we gave him. He calmed down. He seemed postictal.why he was can altered at the beginning but now he is acting normal. He does have a mild tickle in his left face which could be an underlying seizur. Even though the patient reports good compliance I am at doubt because he came in rapid ventricular response from his chronic A. fib. So were going to give him 1 g of IV Keppra and I spoke to Dr. Bill for admission for chest pain rule out. His lactic acid was elevated because of his seizure and it is not due to infection. ED Medical Decision Making - Lab Data Result diagrams: 06/28/21 12:52 06/28/21 12:52 Critical care attestation.: If time is entered above; I have spent that time in minutes in the direct care of this critically ill patient, excluding procedure time. ED Disposition Clinical Impression: Seizure, Chest pain, New onset seizure Disposition: 02 [facility]ORT TERM [facility]OSPITAL Is pt being admited?: Yes Does the pt Need Aspirin: Yes Condition: Stable Instructions: Nonspecific Chest Pain, Adult
[2021-06-28] MEDS ORDERED: dilTIAZem 25 MG/5 ML INJ IV ONE (12:36)
--- NOTE | 2021-06-28 13:02 | XRay Report ---
CHEST 1 VIEW 06/28/2021 11:42 AM INDICATION / CLINICAL INFORMATION: Chest Pain. COMPARISON: One view of the chest from 07/10/2021 FINDINGS: SUPPORT DEVICES: None. HEART / MEDIASTINUM: Stable. LUNGS / PLEURA: No significant pulmonary abnormality. No significant pleural effusion. No pneumothora x. ADDITIONAL FINDINGS: No significant additional findings. IMPRESSION: 1. No acute abnormality of the chest. Signer Name: Abiodun Traore MD Signed: 06/28/2021 12:57 PM Workstation Name: [id number]
[2021-06-28 13:13] LABS: Basophils % (Auto) 0.5 % (0.0-1.8); Eosinophils % (Auto) 0.7 % (0.0-4.3); Hematocrit 42.7 % (35.5-45.6); Hemoglobin 14.5 gm/dl (11.8-15.2); Lymphocytes # (Auto) 2.1 K/mm3 (1.2-5.4); Lymphocytes % (Auto) 31.2 % (13.4-35.0); Mean Corpuscular HGB Conc 34 % (32-34); Mean Corpuscular Volume 95 fl (84-94); Monocytes # (Auto) 0.5 K/mm3 (0.0-0.8); Monocytes % (Auto) 7.4 % (0.0-7.3); Platelet Count 197 K/mm3 (140-440); Red Blood Count 4.48 M/mm3 (3.65-5.03); Red Cell Distribution Width 13.9 % (13.2-15.2)
[2021-06-28 13:39] LABS: Alanine Aminotransferase 31 units/L (7-56); Albumin 4.7 g/dL (3.9-5); BUN/Creatinine Ratio 10; Blood Urea Nitrogen 12 mg/dL (9-20); Calcium 10.4 mg/dL (8.4-10.2); Hemolysis Index 94
[2021-06-28] MEDS ORDERED: levETIRAcetam 1000 MG/NS 0.75% 1,000 MG/100 ML BAG IV ONE (14:45)
[2021-06-28] MEDS ORDERED: ASPIRIN 81 MG TAB CHEW PO ONE (14:48)
[2021-06-28] MEDS ORDERED: MORPHINE 2 MG/1 ML INJ IV PRN (15:10)
[2021-06-28] MEDS ORDERED: oxyCODONE /ACETAMINOPHEN 5-325MG TAB PO PRN (15:10)
[2021-06-28] MEDS ORDERED: ACETAMINOPHEN 325 MG TAB PO PRN (15:10)
[2021-06-28] MEDS ORDERED: ONDANSETRON 4 MG/2 ML INJ IV PRN (15:10)
[2021-06-28] MEDS ORDERED: NON-FORMULARY EACH (Apixaban 5 MG Tablet) PO SCH (15:15)
--- NOTE | 2021-06-28 15:30 | History and Physical Report ---
History of Present Illness Date of examination: 06/28/21 Date of admission: June 28, 2021 Chief complaint: Left-sided chest pain since a.m. History of present illness: 75-year-old male with significant past medical history comes in for left-sided chest pain associated with shortness of breath. No diaphoresis. No palpitations. Patient is agitated. Poor historian. Pain is about 8 on a scale of 1-10. Intermittent in nature. - Past Medical History --Hypertension: Yes --CAD --BPH --HLD --Hypothyroidism --HTN - Surgical History --Coronary Stent: Yes - Social History --Smoking Status: Former Smoker -Review of Systems -ROS: --Stated complaint: MEDICAL --Other details as noted in HPI --Comment: All other systems reviewed and negative Medications and Allergies Allergies Allergy/AdvReac Type Severity Reaction Status Date / Time No Known Allergies Allergy Verified 06/25/21 11:17 Home Medications Medication Instructions Recorded Confirmed Last Taken Type Apixaban [Eliquis] 5 mg PO BID 06/25/21 06/25/21 Unknown History Clopidogrel [Plavix] 75 mg PO QDAY 06/25/21 06/25/21 Unknown History Cyanocobalamin (Vitamin B-12) 1,000 mcg PO QDAY 06/25/21 06/25/21 Unknown History [B-12] Folic Acid [Folvite] 1 mg PO QDAY 06/25/21 06/25/21 Unknown History Spironolactone [Aldactone] 25 mg PO QDAY 06/25/21 06/25/21 Unknown History Tamsulosin [Flomax] 0.4 mg PO QDAY 06/25/21 06/25/21 Unknown History Thiamine [Vitamin B-1] 100 mg PO QDAY 06/25/21 06/25/21 Unknown History Apixaban [Eliquis] 5 mg PO BID 30 Days #60 tablet 06/26/21 Unknown Rx Aspirin [Aspirin BABY CHEW TAB] 81 mg PO QDAY 30 Days #30 tab.chew 06/26/21 Unknown Rx AtorvaSTATin [Lipitor] 40 mg PO QHS 30 Days #30 tablet 06/26/21 Unknown Rx Clopidogrel [Plavix] 75 mg PO QDAY 30 Days #30 tablet 06/26/21 Unknown Rx Digoxin [Lanoxin] 0.125 mg PO DAILY 30 Days #30 tab 06/26/21 Unknown Rx Levothyroxine Sodium 137 mcg PO QAM 30 Days #30 cap 06/26/21 Unknown Rx [Levothyroxine] Losartan [Cozaar] 25 mg PO QDAY 30 Days #30 tab 06/26/21 Unknown Rx Metoprolol [Lopressor TAB] 100 mg PO BID@0800,1700 30 Days 06/26/21 Unknown Rx #60 tablet Tamsulosin [Flomax] 0.4 mg PO QDAY capsule 06/26/21 Unknown Rx levETIRAcetam [Keppra TAB] 1,000 mg PO BID 30 Days #60 tablet 06/26/21 Unknown Rx Exam - Constitutional Vitals: Temp Pulse Resp BP Pulse Ox 98.2 F 74 17 112/80 100 06/28/21 12:13 06/28/21 14:16 06/28/21 14:16 06/28/21 14:16 06/28/21 14:16 General appearance: Present: no acute distress, well-nourished - EENT Eyes: Present: PERRL ENT: hearing intact, clear oral mucosa - Neck Neck: Present: supple, normal ROM - Respiratory Respiratory effort: normal Respiratory: bilateral: CTA - Cardiovascular Heart rate: 78 Rhythm: regular Heart Sounds: Present: S1 & S2. Absent: rub, click - Extremities Extremities: pulses symmetrical, No edema Peripheral Pulses: within normal limits - Abdominal General gastrointestinal: Present: soft, non-tender, non-distended, normal bowel sounds Male genitourinary: Present: normal - Integumentary Integumentary: Present: clear, warm, dry - Musculoskeletal Musculoskeletal: gait normal, strength equal bilaterally - Psychiatric Psychiatric: appropriate mood/affect, intact judgment & insight - Neurologic Neurologic: CNII-XII intact, moves all extremities HEART Score - HEART Score History: Moderately suspicious Age: > 65 Risk factors: > 3 risk factors or hx of atherosclerotic disease Troponin: Troponin T < 0.010 ng/mL (0.00-0.029) 06/28/21 12:52 Troponin: < normal limit - Critical Actions Critical Actions: 4-6 pts:12-16.6% risk of adverse cardiac event. Should be admitted Results - Labs CBC & Chem 7: 06/29/21 05:28 06/29/21 05:28 Labs: Laboratory Last Values WBC 6.7 K/mm3 (4.5-11.0) 06/28/21 12:52 RBC 4.48 M/mm3 (3.65-5.03) 06/28/21 12:52 Hgb 14.5 gm/dl (11.8-15.2) 06/28/21 12:52 Hct 42.7 % (35.5-45.6) 06/28/21 12:52 MCV 95 fl (84-94) H 06/28/21 12:52 MCH 32 pg (28-32) 06/28/21 12:52 MCHC 34 % (32-34) 06/28/21 12:52 RDW 13.9 % (13.2-15.2) 06/28/21 12:52 Plt Count 197 K/mm3 (140-440) 06/28/21 12:52 Lymph % (Auto) 31.2 % (13.4-35.0) 06/28/21 12:52 [place] % (Auto) 7.4 % (0.0-7.3) H 06/28/21 12:52 Eos % (Auto) 0.7 % (0.0-4.3) 06/28/21 12:52 Baso % (Auto) 0.5 % (0.0-1.8) 06/28/21 12:52 Lymph # (Auto) 2.1 K/mm3 (1.2-5.4) 06/28/21 12:52 [place] # (Auto) 0.5 K/mm3 (0.0-0.8) 06/28/21 12:52 Eos # (Auto) 0.0 K/mm3 (0.0-0.4) 06/28/21 12:52 Baso # (Auto) 0.0 K/mm3 (0.0-0.1) 06/28/21 12:52 Seg Neutrophils % 60.2 % (40.0-70.0) 06/28/21 12:52 Seg Neutrophils # 4.0 K/mm3 (1.8-7.7) 06/28/21 12:52 Sodium 133 mmol/L (137-145) L 06/28/21 12:52 Potassium 4.4 mmol/L (3.6-5.0) 06/28/21 12:52 Chloride 96.9 mmol/L (98-107) L 06/28/21 12:52 Carbon Dioxide 14 mmol/L (22-30) L D 06/28/21 12:52 Anion Gap 27 mmol/L 06/28/21 12:52 BUN 12 mg/dL (9-20) 06/28/21 12:52 Creatinine 1.2 mg/dL (0.8-1.3) 06/28/21 12:52 Estimated GFR 59 ml/min 06/28/21 12:52 BUN/Creatinine Ratio 10 % 06/28/21 12:52 Glucose 125 mg/dL (75-100) H 06/28/21 12:52 Lactic Acid 4.40 mmol/L (0.7-2.0) H* 06/28/21 12:52 Calcium 10.4 mg/dL (8.4-10.2) H 06/28/21 12:52 Total Bilirubin 0.90 mg/dL (0.1-1.2) 06/28/21 12:52 AST 30 units/L (5-40) 06/28/21 12:52 ALT 31 units/L (7-56) 06/28/21 12:52 Alkaline Phosphatase 79 units/L (35-129) 06/28/21 12:52 Troponin T < 0.010 ng/mL (0.00-0.029) 06/28/21 12:52 NT-Pro-B Natriuret Pep 3925 pg/mL (0-900) H 06/28/21 12:52 Total Protein 8.9 g/dL (6.3-8.2) H 06/28/21 12:52 Albumin 4.7 g/dL (3.9-5) 06/28/21 12:52 Albumin/Globulin Ratio 1.1 % 06/28/21 12:52 Salicylates < 0.3 mg/dL (2.8-20.0) L 06/28/21 12:52 Acetaminophen 5.0 ug/mL (10.0-30.0) L 06/28/21 12:52 Plasma/Serum Alcohol < 0.01 % (0-0.07) 06/28/21 12:52 Short CBC 06/28/21 06/29/21 Range/Units 12:52 05:28 WBC 6.7 5.4 (4.5-11.0) K/mm3 Hgb 14.5 12.3 (11.8-15.2) gm/dl Hct 42.7 37.8 (35.5-45.6) % Plt Count 197 163 (140-440) K/mm3 BMP 06/28/21 06/29/21 12:52 05:28 Sodium 133 L 131 L Potassium 4.4 4.1 Chloride 96.9 L 97.8 L Carbon Dioxide 14 L D 19 L BUN 12 11 Creatinine 1.2 1.0 Glucose 125 H 98 Calcium 10.4 H 9.4 Cardiac Enzymes 06/28/21 06/28/21 Range/Units 12:52 23:18 Troponin T < 0.010 < 0.010 (0.00-0.029) ng/mL Liver Function 06/28/21 06/29/21 Range/Units 12:52 05:28 Total Bilirubin 0.90 0.70 (0.1-1.2) mg/dL AST 30 19 (5-40) units/L ALT 31 22 (7-56) units/L Alkaline Phosphatase 79 61 (35-129) units/L Albumin 4.7 3.9 (3.9-5) g/dL Urine 06/28/21 Range/Units Unknown Urine Color Yellow (Yellow) Urine pH 6.0 (5.0-7.0) Ur Specific [place] 1.011 (1.003-1.030) Urine Protein <15 mg/dl (Negative) mg/dL Urine Glucose (UA) Neg (Negative) mg/dL - Imaging and Cardiology EKG: report reviewed (Sinus rhythm no ST-T wave changes) Imaging and Cardiology: Chest x-ray no acute abnormality of the chest Assessment and Plan Advance Directives: Yes (Full code) VTE prophylaxis?: Chemical Plan of care discussed with patient/family: Yes - Patient Problems (1) Atrial fibrillation with RVR Current Visit: No Status: Acute Plan to address problem: Patient initiated on diltiazem and metoprolol Patient on Eliquis (2) Acute coronary syndrome Current Visit: Yes Status: Acute Plan to address problem: Serial troponins Discharged tomorrow if negative Arrange for outpatient stress test. (3) Elevated brain natriuretic peptide (BNP) level Current Visit: Yes Status: Acute Plan to address problem: Echocardiogram for ejection fraction, wall motion abnormalities and valve function 1 dose of IV Lasix given (4) Elevated lactic acid level Current Visit: Yes Status: Acute Plan to address problem: No source of infection identified Chest x-ray and urine was clear No fever no high white count (5) Coronary artery disease Current Visit: No Status: Acute Plan to address problem: Continue Plavix (6) BPH (benign prostatic hyperplasia) Current Visit: Yes Status: Chronic Qualifiers: Lower urinary tract symptom presence: symptoms present Plan to address problem: Continue Flomax (7) HLD (hyperlipidemia) Current Visit: Yes Status: Chronic Qualifiers: Hyperlipidemia type: mixed hyperlipidemia Qualified Code(s): E78.2 - Mixed hyperlipidemia Plan to address problem: Continue statins (8) Hypothyroidism (acquired) Current Visit: Yes Status: Chronic Plan to address problem: Continue Synthroid (9) Hypertension Current Visit: Yes Status: Chronic Qualifiers: Hypertension type: primary hypertension Qualified Code(s): I10 - Essential (primary) hypertension Plan to address problem: Continue antihypertensives (10) Seizure disorder Current Visit: Yes Status: Chronic Plan to address problem: Continue Keppra (11) DVT prophylaxis Current Visit: No Status: Acute Plan to address problem: On Eliquis and GI prophylaxis (12) Advance care planning Current Visit: No Status: Acute Plan to address problem: Disease education conducted, care plan discussed, and diagnosis discussed, prognosis discussed. Patient is full code. Patient acknowledged understanding and agreement. With care plan
[2021-06-28] MEDS ORDERED: levETIRAcetam 500 MG TAB PO SCH (16:00)
[2021-06-28] MEDS: ASPIRIN 81 MG TAB CHEW PO SCH (16:05)
[2021-06-28 17:15] LABS: Bilirubin,Urine NEG (Negative); Blood,Urine NEG (Negative); Color,Urine Yellow (Yellow); Protein,Urine <15 mg/dL mg/dL (Negative); Urobilinogen,Urine < 2.0 mg/dL (<2.0)
[2021-06-28 17:22] LABS: Amphetamine Screen,Urine Negative; Benzodiazepines Screen,Urine Negative; Cannabinoid Screen,Urine Negative; Cocaine Screen,Urine Negative; Methadone Screen,Urine Negative; Opiate Screen,Urine Negative
[2021-06-28] MEDS: levETIRAcetam 500 MG TAB PO SCH (21:53)
[2021-06-28] MEDS: LOSARTAN 25 MG TAB PO SCH (21:56)
[2021-06-28] MEDS: TAMSULOSIN 0.4 MG CAP PO SCH (21:57)
[2021-06-28] MEDS: METOPROLOL TARTRATE 100 MG TAB PO SCH (22:00)
[2021-06-28] MEDS: HEPARIN 5,000 UNIT/1 ML VIAL SUB-Q SCH ×2 (22:00→22:01)
[2021-06-29] MEDS: LEVOTHYROXINE 25 MCG TAB PO SCH (05:13)
[2021-06-29] MEDS: LEVOTHYROXINE 112 MCG TAB PO SCH (05:13)
[2021-06-29 06:16] LABS: Basophils % (Auto) 0.8 % (0.0-1.8); Eosinophils # (Auto) 0.1 K/mm3 (0.0-0.4); Eosinophils % (Auto) 1.3 % (0.0-4.3); Hematocrit 37.8 % (35.5-45.6); Hemoglobin 12.3 gm/dl (11.8-15.2); Lymphocytes # (Auto) 1.8 K/mm3 (1.2-5.4); Lymphocytes % (Auto) 33.5 % (13.4-35.0); Mean Corpuscular HGB Conc 33 % (32-34); Mean Corpuscular Volume 96 fl (84-94); Monocytes # (Auto) 0.5 K/mm3 (0.0-0.8); Monocytes % (Auto) 9.8 % (0.0-7.3); Platelet Count 163 K/mm3 (140-440); Red Blood Count 3.93 M/mm3 (3.65-5.03); Red Cell Distribution Width 13.7 % (13.2-15.2)
[2021-06-29 06:27] LABS: Alanine Aminotransferase 22 units/L (7-56); Albumin 3.9 g/dL (3.9-5); BUN/Creatinine Ratio 11; Blood Urea Nitrogen 11 mg/dL (9-20); Calcium 9.4 mg/dL (8.4-10.2); Hemolysis Index 26
[2021-06-29] MEDS ORDERED: NON-FORMULARY EACH (Levothyroxine Sodium [Levothyroxine] 137 MCG Capsule) PO SCH (10:00)
[2021-06-29] MEDS: ASPIRIN 81 MG TAB CHEW PO SCH (10:13)
[2021-06-29] MEDS: levETIRAcetam 500 MG TAB PO SCH ×2 (10:13→21:41)
[2021-06-29] MEDS: METOPROLOL TARTRATE 100 MG TAB PO SCH ×2 (10:13→16:13)
[2021-06-29] MEDS: CYANOCOBALAMIN (VIT B-12) 1000 MCG TAB PO SCH (10:13)
[2021-06-29] MEDS: SPIRONOLACTONE 25 MG TAB PO SCH (10:13)
[2021-06-29] MEDS: CLOPIDOGREL 75 MG TAB PO SCH (10:13)
[2021-06-29] MEDS: DIGOXIN 0.125 MG TAB PO SCH (10:14)
[2021-06-29] MEDS: THIAMINE 100 MG TAB PO SCH ×2 (10:14→21:40)
[2021-06-29] MEDS: LOSARTAN 25 MG TAB PO SCH (10:14)
[2021-06-29] MEDS: HEPARIN 5,000 UNIT/1 ML VIAL SUB-Q SCH ×2 (10:14→21:42)
[2021-06-29] MEDS: TAMSULOSIN 0.4 MG CAP PO SCH (10:14)
[2021-06-29] MEDS: FOLIC ACID 1 MG TAB PO SCH (10:20)
[2021-06-29] MEDS: dilTIAZem CD 120 MG CAP PO SCH (12:48)
[2021-06-29] MEDS: FUROSEMIDE 40 MG/4 ML INJ IV SCH (12:48)
[2021-06-29] MEDS: POTASSIUM CHLORIDE ER 20 MEQ TAB PO SCH (12:48)
--- NOTE | 2021-06-29 12:53 | Electrocardiograph Report ---
[facility] Test Date: 2021-06-28 Test Time: 12:27:29 Pat Name: ISABELLE GUZMAN Department: Room: A459 Gender: M [place]: TANIA : 1945 Requested By: ANGEL BARBOUR Order Number: [id number] Reading MD: Christopher Friedman Measurements Intervals [place] Rate: 108 P: 0 [place]: 117 QRS: 149 QRSD: 90 T: 11 QT: 341 QTc: 459 Interpretive Statements Atrial fibrillation Multiple premature complexes, vent & supraven Anterior infarct, old Compared to ECG 06/23/2021 10:31:22 Atrial fibrillation rate is faster. Electronically Signed On 06-29-2021 12:52:30 EDT by Christopher Friedman
[2021-06-29] MEDS: LORazepam 2 MG/ML VIAL IV PRN ×2 (13:56→22:43)
[2021-06-29] MEDS ORDERED: METOPROLOL TARTRATE 5 MG/5 ML INJ IV ONE (16:00)
[2021-06-30] MEDS: LEVOTHYROXINE 25 MCG TAB PO SCH (06:22)
[2021-06-30] MEDS: LEVOTHYROXINE 112 MCG TAB PO SCH (06:22)
--- NOTE | 2021-06-30 08:15 | Progress Note ---
Assessment and Plan - Patient Problems (1) Atrial fibrillation with RVR Current Visit: No Status: Acute Plan to address problem: Patient initiated on diltiazem and metoprolol Patient on Eliquis Add Amiodarone (2) Acute coronary syndrome Current Visit: Yes Status: Acute Plan to address problem: Serial troponins Discharged tomorrow if negative Arrange for outpatient stress test. (3) Elevated brain natriuretic peptide (BNP) level Current Visit: Yes Status: Acute Plan to address problem: Echocardiogram for ejection fraction, wall motion abnormalities and valve function 1 dose of IV Lasix given (4) Elevated lactic acid level Current Visit: Yes Status: Acute Plan to address problem: No source of infection identified Chest x-ray and urine was clear No fever no high white count (5) Coronary artery disease Current Visit: No Status: Acute Plan to address problem: Continue Plavix (6) BPH (benign prostatic hyperplasia) Current Visit: Yes Status: Chronic Qualifiers: Lower urinary tract symptom presence: symptoms present Plan to address problem: Continue Flomax (7) HLD (hyperlipidemia) Current Visit: Yes Status: Chronic Qualifiers: Hyperlipidemia type: mixed hyperlipidemia Qualified Code(s): E78.2 - Mixed hyperlipidemia Plan to address problem: Continue statins (8) Hypothyroidism (acquired) Current Visit: Yes Status: Chronic Plan to address problem: Continue Synthroid (9) Hypertension Current Visit: Yes Status: Chronic Qualifiers: Hypertension type: primary hypertension Qualified Code(s): I10 - Essential (primary) hypertension Plan to address problem: Continue antihypertensives (10) Seizure disorder Current Visit: Yes Status: Chronic Plan to address problem: Continue Keppra (11) DVT prophylaxis Current Visit: No Status: Acute Plan to address problem: On Eliquis and GI prophylaxis (12) Advance care planning Current Visit: No Status: Acute Plan to address problem: Disease education conducted, care plan discussed, and diagnosis discussed, prognosis discussed. Patient is full code. Patient acknowledged understanding and agreement. With care plan Subjective Date of service: 06/29/21 Principal diagnosis: Atrial fibrillation with RVR Interval history: 75-year-old male with significant past medical history comes in for left-sided chest pain associated with shortness of breath. No diaphoresis. No palpitations. Patient is agitated. Poor historian. Pain is about 8 on a scale of 1-10. Intermittent in nature. 06/29/2021 Patient continues to be in rapid ventricular rate of around 1 40-1 60 Less agitated Pleasant Eating by himself Niece is at bedside with whom I had discussed the prognosis and diagnosis Objective - Constitutional Vitals: Vital Signs - 12hr 06/29/21 06/29/21 06/29/21 20:15 21:30 23:43 Temperature 98.9 F Pulse Rate 99 H 67 Respiratory 18 Rate Blood Pressure 97/63 82/56 O2 Sat by Pulse 97 97 95 Oximetry 06/30/21 03:28 Temperature 97.2 F L Pulse Rate 61 Respiratory 18 Rate Blood Pressure 103/60 O2 Sat by Pulse 96 Oximetry General appearance: Present: no acute distress, well-nourished - EENT Eyes: PERRL, EOM intact ENT: hearing intact, clear oral mucosa Ears: bilateral: normal - Neck Neck: supple, normal ROM - Respiratory Respiratory effort: normal Respiratory: bilateral: CTA - Breasts Breasts: normal - Cardiovascular Heart rate: 150 Rhythm: irregularly irregular Heart Sounds: Present: S1 & S2. Absent: gallop, rub Extremities: pulses intact, No edema, normal color, Full ROM - Gastrointestinal General gastrointestinal: Present: soft, non-tender, non-distended, normal bowel sounds - Genitourinary Male genitourinary: normal - Integumentary Integumentary: clear, warm, dry - Musculoskeletal Musculoskeletal: 1, strength equal bilaterally - Neurologic Neurologic: moves all extremities - Psychiatric Psychiatric: memory intact, appropriate mood/affect, intact judgment & insight - Labs CBC & Chem 7: 07/01/21 07:15 06/29/21 05:28 HEART Score - HEART Score Age: > 65 Risk factors: > 3 risk factors or hx of atherosclerotic disease Troponin: Troponin T < 0.010 ng/mL (0.00-0.029) 06/29/21 14:09 Troponin: < normal limit - Critical Actions Critical Actions: 4-6 pts:12-16.6% risk of adverse cardiac event. Should be admitted
[2021-06-30] MEDS: FOLIC ACID 1 MG TAB PO SCH (10:00)
[2021-06-30] MEDS: CLOPIDOGREL 75 MG TAB PO SCH (10:00)
[2021-06-30] MEDS: THIAMINE 100 MG TAB PO SCH (10:00)
[2021-06-30] MEDS: CYANOCOBALAMIN (VIT B-12) 1000 MCG TAB PO SCH (10:00)
[2021-06-30] MEDS: levETIRAcetam 500 MG TAB PO SCH ×2 (10:02→21:54)
[2021-06-30] MEDS: dilTIAZem CD 120 MG CAP PO SCH (10:04)
[2021-06-30] MEDS: ASPIRIN 81 MG TAB CHEW PO SCH (10:05)
[2021-06-30] MEDS: TAMSULOSIN 0.4 MG CAP PO SCH (10:05)
[2021-06-30] MEDS: POTASSIUM CHLORIDE ER 20 MEQ TAB PO SCH (10:08)
[2021-06-30] MEDS: DIGOXIN 0.125 MG TAB PO SCH (10:08)
[2021-06-30] MEDS: HEPARIN 5,000 UNIT/1 ML VIAL SUB-Q SCH ×2 (10:09→21:54)
[2021-06-30] MEDS: METOPROLOL TARTRATE 100 MG TAB PO SCH ×2 (10:10→19:50)
[2021-06-30] MEDS: SPIRONOLACTONE 25 MG TAB PO SCH (10:10)
[2021-06-30] MEDS: LOSARTAN 25 MG TAB PO SCH (10:11)
[2021-06-30] MEDS: FUROSEMIDE 40 MG/4 ML INJ IV SCH (12:57)
--- NOTE | 2021-06-30 14:36 | Consultation ---
History of Present Illness Consult date: 06/30/21 Consult reason: atrial fibrillation, chest pain History of present illness: 75 yr old amle with history of CAD s/p PCI and stent inserted at [facility],permanent atrial fib , presents with chest pains Past History Past Medical History: atrial fib, CAD, hypertension, hyperlipidemia Past Surgical History: PTCA Medications and Allergies Allergies Allergy/AdvReac Type Severity Reaction Status Date / Time No Known Allergies Allergy Verified 06/25/21 11:17 Home Medications Medication Instructions Recorded Confirmed Last Taken Type Apixaban [Eliquis] 5 mg PO BID 06/25/21 06/30/21 06/23/21 History Clopidogrel [Plavix] 75 mg PO QDAY 06/25/21 06/30/21 06/26/21 History Cyanocobalamin (Vitamin B-12) 1,000 mcg PO QDAY 06/25/21 06/30/21 06/23/21 History [B-12] Folic Acid [Folvite] 1 mg PO QDAY 06/25/21 06/30/21 06/26/21 History Spironolactone [Aldactone] 25 mg PO QDAY 06/25/21 06/30/21 06/27/21 History Tamsulosin [Flomax] 0.4 mg PO QDAY 06/25/21 06/30/21 06/27/21 History Thiamine [Vitamin B-1] 100 mg PO QDAY 06/25/21 06/30/21 06/27/21 History Apixaban [Eliquis] 5 mg PO BID 30 Days #60 tablet 06/26/21 06/30/21 06/27/21 Rx Aspirin [Aspirin BABY CHEW TAB] 81 mg PO QDAY 30 Days #30 tab.chew 06/26/21 06/30/21 06/24/21 Rx AtorvaSTATin [Lipitor] 40 mg PO QHS 30 Days #30 tablet 06/26/21 06/30/21 06/27/21 Rx Clopidogrel [Plavix] 75 mg PO QDAY 30 Days #30 tablet 06/26/21 06/30/21 06/23/21 Rx Digoxin [Lanoxin] 0.125 mg PO DAILY 30 Days #30 tab 06/26/21 06/23/21 Rx Levothyroxine Sodium 137 mcg PO QAM 30 Days #30 cap 06/26/21 06/30/2106/27/22 Rx [Levothyroxine] Losartan [Cozaar] 25 mg PO QDAY 30 Days #30 tab 06/26/21 06/30/21 06/26/21 Rx Metoprolol [Lopressor TAB] 100 mg PO BID@0800,1700 30 Days 06/26/21 06/30/21 06/27/21 Rx #60 tablet Tamsulosin [Flomax] 0.4 mg PO QDAY capsule 06/26/21 06/30/21 06/24/21 Rx levETIRAcetam [Keppra TAB] 1,000 mg PO BID 30 Days #60 tablet 06/26/21 06/30/21 06/30/21 00:44 Rx Active Meds: Active Medications Acetaminophen (Acetaminophen 325 Mg Tab) 650 mg PO Q4H PRN PRN Reason: Pain MILD(1-3)/Fever >100.5/CASTRO Aspirin (Aspirin 81 Mg Tab Chew) 81 mg PO QDAY [facility] Last Admin: 06/29/21 10:13 Dose: 81 mg Atorvastatin Calcium (Atorvastatin 40 Mg Tab) 40 mg PO QHS [facility] Last Admin: 06/29/21 21:41 Dose: 40 mg Clopidogrel Bisulfate (Clopidogrel 75 Mg Tab) 75 mg PO QDAY [facility] Last Admin: 06/29/21 10:13 Dose: 75 mg Cyanocobalamin (Cyanocobalamin (Vit B-12) 1000 Mcg Tab) 1,000 mcg PO QDAY [facility] Last Admin: 06/29/21 10:13 Dose: 1,000 mcg Digoxin (Digoxin 0.125 Mg Tab) 0.125 mg PO DAILY [facility] Last Admin: 06/29/21 10:14 Dose: 0.125 mg Diltiazem HCl (Diltiazem Cd 120 Mg Cap) 120 mg PO QDAY [facility] Last Admin: 06/29/21 12:48 Dose: 120 mg Folic Acid (Folic Acid 1 Mg Tab) 1 mg PO QDAY [facility] Last Admin: 06/29/21 10:20 Dose: 1 mg Furosemide (Furosemide 40 Mg/4 Ml Inj) 40 mg IV Q24H [facility] Last Admin: 06/29/21 12:48 Dose: 40 mg Heparin Sodium (Porcine) (Heparin 5,000 Unit/1 Ml Vial) 5,000 unit SUB-Q Q12HR [facility] Last Admin: 06/29/21 21:42 Dose: 5,000 unit Levetiracetam (Levetiracetam 500 Mg Tab) 1,000 mg PO BID [facility] Last Admin: 06/29/21 21:41 Dose: 1,000 mg Levothyroxine Sodium (Levothyroxine 112 Mcg Tab) 112 mcg PO DAILY@0600 [facility] Last Admin: 06/30/21 06:22 Dose: 112 mcg Levothyroxine Sodium (Levothyroxine 25 Mcg Tab) 25 mcg PO DAILY@0600 [facility] Last Admin: 06/30/21 06:22 Dose: 25 mcg Lorazepam (Lorazepam 2 Mg/Ml Vial) 1 mg IV Q6H PRN PRN Reason: Agitation Last Admin: 06/29/21 22:43 Dose: 1 mg Losartan Potassium (Losartan 25 Mg Tab) 25 mg PO QDAY [facility] Last Admin: 06/29/21 10:14 Dose: 25 mg Metoprolol Tartrate (Metoprolol Tartrate 100 Mg Tab) 100 mg PO BID@0800,1700 [facility] Last Admin: 06/29/21 16:13 Dose: Not Given Morphine Sulfate (Morphine 2 Mg/1 Ml Inj) 2 mg IV Q4H PRN PRN Reason: Pain, Moderate (4-6) Ondansetron HCl (Ondansetron 4 Mg/2 Ml Inj) 4 mg IV Q8H PRN PRN Reason: Nausea And Vomiting Last Admin: 06/29/21 22:46 Dose: 4 mg Oxycodone/Acetaminophen (Oxycodone /Acetaminophen 5-325mg Tab) 1 tab PO Q6H PRN PRN Reason: Pain, Moderate (4-6) Potassium Chloride (Potassium Chloride Er 20 Meq Tab) 20 meq PO QDAY [facility] Last Admin: 06/29/21 12:48 Dose: 20 meq Sodium Chloride (Sodium Chloride 0.9% 10 Ml Flush Syringe) 10 ml IV BID [facility] Last Admin: 06/30/21 06:22 Dose: 10 ml Sodium Chloride (Sodium Chloride 0.9% 10 Ml Flush Syringe) 10 ml IV PRN PRN PRN Reason: LINE FLUSH Spironolactone (Spironolactone 25 Mg Tab) 25 mg PO QDAY [facility] Last Admin: 06/29/21 10:13 Dose: 25 mg Tamsulosin HCl (Tamsulosin 0.4 Mg Cap) 0.4 mg PO QDAY [facility] Last Admin: 06/29/21 10:14 Dose: 0.4 mg Thiamine HCl (Thiamine 100 Mg Tab) 100 mg PO QDAY [facility] Last Admin: 06/29/21 21:40 Dose: Not Given Review of Systems Constitutional: no weight loss, no weight gain, no fever, no anorexia, no fatigue Ears, nose, mouth and throat: no deferred, no ear pain, no ear discharge, no decreased hearing, no nose pain, no nasal congestion Cardiovascular: no orthopnea, no palpitations, no syncope, no lightheadedness Respiratory: no cough, no shortness of breath, no dyspnea on exertion, no congestion Gastrointestinal: no nausea, no vomiting, no diarrhea Genitourinary Male: no dysuria, no hematuria, no flank pain Musculoskeletal: no neck stiffness, no neck pain, no low back pain, no shooting leg pain Integumentary: no rash, no pruritis Neurological: no paralysis, no weakness, no parathesias, no tingling Endocrine: no cold intolerance, no heat intolerance, no polydipsia, no polyuria, no nocturia Hematologic/Lymphatic: no easy bruising, no easy bleeding Allergic/Immunologic: no urticaria, no allergic rhinitis, no wheezing Physical Examination Vital Signs Temp Pulse Resp BP Pulse Ox 98.2 F 109 H 22 148/91 99 06/28/21 12:13 06/28/21 12:13 06/28/21 12:13 06/28/21 12:13 06/28/21 12:13 General appearance: no acute distress HEENT: Positive: PERRL, Normocephaly, Mucus Membranes Moist Neck: Positive: neck supple, trachea midline. Negative: JVD/HJR Cardiac: Positive: Reg Rate and Rhythm, irregularly irregular, S1/S2, PMI, Laterally Displaced. Negative: S3, S4 Lungs: Positive: clear to auscultation, No Wheeze, Rales, Rhonchi Neuro: Positive: Grossly Intact Abdomen: Positive: Unremarkable, Soft Skin: Negative: Rash Extremities: Absent: edema Results 06/29/21 05:28 06/29/21 05:28 - EKG Interpretation EKG shows: atrial fibrillation EKG interpretations - Telemetry EKG Rhythm: Atrial Fibrillation Assessment and Plan 1. Arthrosclerotic coronary artery disease with unspecified angina 2. Coronary artery disease status post recent PCI and stent to the left main at [facility] 3. Permanent atrial fibrillation with controlled ventricular response 4. Hypothyroidism 5. Essential hypertension 6. Seizure disorder 7. Vascular dementia Plan. Patient is currently stable and chest pain-free cardiac enzymes so far negative patient's cardiac rhythm remains in atrial fibrillation. We will continue home medication including Eliquis. Adjust anti-ischemic medication
[2021-06-30] MEDS ORDERED: AMIODARONE 150 MG in DEXTROSE 5% IN WATER 100 ML IV ONE (18:32)
--- NOTE | 2021-06-30 18:40 | Progress Note ---
Assessment and Plan - Patient Problems (1) Atrial fibrillation with RVR Current Visit: No Status: Acute Plan to address problem: Patient initiated on diltiazem and metoprolol Patient on Eliquis Amiodarone infusion added Bridged to oral amiodarone (2) Acute coronary syndrome Current Visit: Yes Status: Acute Plan to address problem: Serial troponins--- normal (3) Elevated brain natriuretic peptide (BNP) level Current Visit: Yes Status: Acute Plan to address problem: Echocardiogram for ejection fraction, wall motion abnormalities and valve function 1 dose of IV Lasix given (4) Elevated lactic acid level Current Visit: Yes Status: Acute Plan to address problem: No source of infection identified Chest x-ray and urine was clear No fever no high white count (5) Coronary artery disease Current Visit: No Status: Acute Plan to address problem: Continue Plavix (6) BPH (benign prostatic hyperplasia) Current Visit: Yes Status: Chronic Qualifiers: Lower urinary tract symptom presence: symptoms present Plan to address problem: Continue Flomax (7) HLD (hyperlipidemia) Current Visit: Yes Status: Chronic Qualifiers: Hyperlipidemia type: mixed hyperlipidemia Qualified Code(s): E78.2 - Mixed hyperlipidemia Plan to address problem: Continue statins (8) Hypothyroidism (acquired) Current Visit: Yes Status: Chronic Plan to address problem: Continue Synthroid (9) Hypertension Current Visit: Yes Status: Chronic Qualifiers: Hypertension type: primary hypertension Qualified Code(s): I10 - Essential (primary) hypertension Plan to address problem: Continue antihypertensives (10) Seizure disorder Current Visit: Yes Status: Chronic Plan to address problem: Continue Keppra (11) DVT prophylaxis Current Visit: No Status: Acute Plan to address problem: On Eliquis and GI prophylaxis (12) Advance care planning Current Visit: No Status: Acute Plan to address problem: Disease education conducted, care plan discussed, and diagnosis discussed, prognosis discussed. Patient is full code. Patient acknowledged understanding and agreement. With care plan (13) Discharge planning issues Current Visit: Yes Status: Acute Plan to address problem: If ventricular rate is controlled--patient to be discharged tomorrow Patient has a roommate ADLs are normal Subjective Date of service: 06/30/21 Principal diagnosis: Atrial fibrillation with RVR Interval history: 75-year-old male with significant past medical history comes in for left-sided chest pain associated with shortness of breath. No diaphoresis. No palpitations. Patient is agitated. Poor historian. Pain is about 8 on a scale of 1-10. Intermittent in nature. 06/29/2021 Patient continues to be in rapid ventricular rate of around 1 40-1 60 Less agitated Pleasant Eating by himself Niece is at bedside with whom I had discussed the prognosis and diagnosis 06/30/2021 Patient is comfortable Heart rate is still between 140 and 160s Amiodarone infusion added To switch to oral amiodarone and discharge tomorrow if rate is controlled Objective - Constitutional Vitals: Vital Signs - 12hr 06/30/21 06/30/21 06/30/21 08:00 08:05 10:00 Temperature 97.8 F Pulse Rate 51 L Respiratory 18 Rate Blood Pressure 87/46 O2 Sat by Pulse 100 97 97 Oximetry 06/30/21 06/30/21 06/30/21 15:29 16:13 16:14 Temperature 98.0 F 98.1 F Pulse Rate 67 93 H 106 H Respiratory 18 20 Rate Blood Pressure 99/68 96/59 O2 Sat by Pulse 94 96 96 Oximetry General appearance: Present: no acute distress, well-nourished - EENT Eyes: PERRL, EOM intact ENT: hearing intact, clear oral mucosa Ears: bilateral: normal - Neck Neck: supple, normal ROM - Respiratory Respiratory effort: normal Respiratory: bilateral: CTA - Breasts Breasts: normal - Cardiovascular Heart rate: 160 Rhythm: irregularly irregular Heart Sounds: Present: S1 & S2. Absent: gallop, rub Extremities: pulses intact, No edema, normal color, Full ROM - Gastrointestinal General gastrointestinal: Present: soft, non-tender, non-distended, normal bowel sounds - Genitourinary Male genitourinary: normal - Integumentary Integumentary: clear, warm, dry - Musculoskeletal Musculoskeletal: 1, strength equal bilaterally - Neurologic Neurologic: moves all extremities - Psychiatric Psychiatric: memory intact, appropriate mood/affect, intact judgment & insight - Labs CBC & Chem 7: 07/01/21 07:15 07/01/21 07:15 HEART Score - HEART Score Age: > 65 Risk factors: > 3 risk factors or hx of atherosclerotic disease Troponin: Troponin T < 0.010 ng/mL (0.00-0.029) 06/29/21 14:09 Troponin: < normal limit - Critical Actions Critical Actions: 4-6 pts:12-16.6% risk of adverse cardiac event. Should be admitted
[2021-07-01] MEDS: LEVOTHYROXINE 25 MCG TAB PO SCH (06:06)
[2021-07-01] MEDS: LEVOTHYROXINE 112 MCG TAB PO SCH (06:06)
[2021-07-01 07:52] LABS: Basophils # (Auto) 0.1 K/mm3 (0.0-0.1); Basophils % (Auto) 0.9 % (0.0-1.8); Eosinophils # (Auto) 0.1 K/mm3 (0.0-0.4); Eosinophils % (Auto) 2.2 % (0.0-4.3); Hematocrit 36.1 % (35.5-45.6); Hemoglobin 11.9 gm/dl (11.8-15.2); Lymphocytes # (Auto) 1.9 K/mm3 (1.2-5.4); Lymphocytes % (Auto) 32.3 % (13.4-35.0); Mean Corpuscular HGB Conc 33 % (32-34); Mean Corpuscular Volume 95 fl (84-94); Monocytes # (Auto) 0.8 K/mm3 (0.0-0.8); Monocytes % (Auto) 12.7 % (0.0-7.3); Platelet Count 162 K/mm3 (140-440); Red Blood Count 3.79 M/mm3 (3.65-5.03); Red Cell Distribution Width 13.5 % (13.2-15.2)
[2021-07-01 08:12] LABS: Albumin 4.1 g/dL (3.9-5); Calcium 9.4 mg/dL (8.4-10.2)
[2021-07-01 09:32] LABS: Hemoglobin 12.8 gm/dl (11.8-15.2); INR 0.91 (0.87-1.13); Mean Corpuscular HGB Conc 35 % (32-34); Mean Corpuscular Volume 94 fl (84-94); Partial Thromboplastin Time 29.7 Sec. (24.2-36.6); Platelet Count 175 K/mm3 (140-440); Red Blood Count 3.93 M/mm3 (3.65-5.03); Red Cell Distribution Width 13.7 % (13.2-15.2)
[2021-07-01 09:52] VITALS: BP 107/78
[2021-07-01] MEDS ORDERED: APIXABAN 5 MG TAB PO SCH (10:00)
[2021-07-01] MEDS ORDERED: AMIODARONE 200 MG TAB PO SCH (10:00)
[2021-07-01] MEDS: POTASSIUM CHLORIDE ER 20 MEQ TAB PO SCH (10:58)
[2021-07-01] MEDS: dilTIAZem CD 120 MG CAP PO SCH (10:58)
[2021-07-01] MEDS: SPIRONOLACTONE 25 MG TAB PO SCH (10:58)
[2021-07-01] MEDS: ASPIRIN 81 MG TAB CHEW PO SCH (10:58)
[2021-07-01] MEDS: DIGOXIN 0.125 MG TAB PO SCH (10:58)
[2021-07-01] MEDS: CYANOCOBALAMIN (VIT B-12) 1000 MCG TAB PO SCH (10:58)
[2021-07-01] MEDS: THIAMINE 100 MG TAB PO SCH (10:58)
[2021-07-01] MEDS: TAMSULOSIN 0.4 MG CAP PO SCH (10:58)
[2021-07-01] MEDS: HEPARIN 5,000 UNIT/1 ML VIAL SUB-Q SCH (10:59)
[2021-07-01] MEDS: METOPROLOL TARTRATE 100 MG TAB PO SCH (12:16)
[2021-07-01] MEDS: FOLIC ACID 1 MG TAB PO SCH (12:17)
[2021-07-01] MEDS: levETIRAcetam 500 MG TAB PO SCH (12:17)
--- NOTE | 2021-07-01 21:39 | Discharge Summary ---
Providers - Providers Date of Admission: 06/28/21 15:10 Attending physician: DARRON RODRIGUEZ 06/29/21 10:40 Consult to Physician [CONS] Routine Comment: Consulting Provider: ANA FATIMA Physician Instructions: Reason For Exam: A fib with rvr Primary care physician: MAGAZINE HAND Hospitalization Condition: Stable Disposition: 01 HOME / SELF CARE / HOMELESS Exam - Constitutional Vitals: Temp Pulse Resp BP Pulse Ox 98.7 F 64 18 107/78 95 07/01/21 08:31 07/01/21 08:31 07/01/21 08:31 07/01/21 08:31 07/01/21 08:31 Plan Follow up with: ANA FATIMA MD [Staff Physician] - 7 Days PRIMARY CAREMD [Primary Care Provider] - 3-5 Days Other Discharge Orders: Home Health Care (Amb) Location: None Selected
== END 2021-07-01 13:44 | disposition home health service (06) | DRG 309 ==
LOC: ED 12:09 → 4A 15:10
PROVIDERS: ADMIT Internal Medicine; ATTEND Internal Medicine
DX: I48.91 Unspecified atrial fibrillation (principal); E87.2 Acidosis; I24.9 Acute ischemic heart disease, unspecified; I25.10 Atherosclerotic heart disease of native coronary artery without angina pectoris; I10 Essential (primary) hypertension; F01.50 Vascular dementia, unspecified severity, without behavioral disturbance, psychotic disturbance, mood disturbance, and anxiety; N40.0 Benign prostatic hyperplasia without lower urinary tract symptoms; Z87.891 Personal history of nicotine dependence; Z79.82 Long term (current) use of aspirin; E03.9 Hypothyroidism, unspecified; E78.2 Mixed hyperlipidemia; G40.909 Epilepsy, unspecified, not intractable, without status epilepticus
CPT/HCPCS: 36415; 71045; 80053; 80307; 80320; 81001; 82140; 82565; 83880; 84484; 85025; 85027; 85610; 85730; 93005; 94760; G0378; J3490; J7060; G0480; J0282; J1644; J1940; J1953; J2060; J2405